=== PATIENT | male | born 1960 | race Caucasian/White ===

== ENCOUNTER 2017-06-10 05:00 | Emergency (ER) | payer OTHER ==
[2017-06-10 05:12] VITALS: BP 102/59
[2017-06-10] MEDS ORDERED: Etomidate 2 MG/ML 20 ML SDV IVPUSH ONE (05:39)
--- NOTE | 2017-06-10 05:39 | EDM.PDOC ---
ED HPI GENERAL MEDICAL PROBLEM - General Chief Complaint: Lower Extremity Injury/Pain Stated Complaint: POSS BROKEN ANKLE Time Seen by Provider: 06/10/17 05:31 Source of Information: Reports: Patient History Limitations: Reports: No Limitations - History of Present Illness INITIAL COMMENTS - FREE TEXT/NARRATIVE: His is a 56-year-old male. Early this morning he went out to walk his dog and the dog jerked him and he slipped and fell injuring his right ankle. It took him about 2 hours to get in to the ER. But he has an obviously dislocated right ankle with swelling and tenting of the skin on the medial side. On initial examination he's got decreased pedal pulse but he's got a normal posterior tibial pulse. The foot is cold though it does have some capillary refill that is greater than 2 seconds. The patient states that he figured this was going to happen since his dog is very strong and tends to jerk on the leash a lot. He denies any recent illnesses no colds no cough no fever no chills. Right Ankle Pain Score (Numeric/FACES): 9 - Related Data Allergies Allergy/AdvReac Type Severity Reaction Status Date / Time ibuprofen [From Motrin] Allergy Rash Verified 10/06/16 08:51 Home Meds: Home Meds Hydrocodone/Acetaminophen [Hydrocodon-Acetaminophen 5-325] 1 each PO Q6H PRN # 15 tablet 06/10/17 [Rx] Past Medical History Cardiovascular History: Reports: Hypertension Psychiatric History: Reports: Addiction, Anxiety, Depression Social & Family History - Tobacco Use Smoking Status *Q: Never Smoker Years of Tobacco use: 30 Second Hand Smoke Exposure: No - Caffeine Use Caffeine Use: Reports: Coffee - Alcohol Use Days Per Week of Alcohol Use: 7 Number of Drinks Per Day: 8 Total Drinks Per Week: 56 - Recreational Drug Use Recreational Drug Use: No - Living Situation & Occupation Living situation: Reports: Single Occupation: Employed Review of Systems - Review of Systems Review Of Systems: See Below Constitutional: Denies: Chills, Fever Eyes: Reports: No Symptoms Ears: Reports: No Symptoms Nose: Reports: No Symptoms Mouth/Throat: Reports: No Symptoms Respiratory: Denies: Shortness of Breath Cardiovascular: Denies: Chest Pain GI/Abdominal: Reports: No Symptoms Musculoskeletal: Reports: Other (As per history of present illness) Skin: Reports: No Symptoms Neurological: Reports: No Symptoms Psychiatric: Reports: No Symptoms ED EXAM, GENERAL - Physical Exam Exam: See Below Exam Limited By: No Limitations General Appearance: Alert, WD/WN, Mild Distress Eye Exam: Bilateral Eye: Normal Inspection Ears: Normal External Exam Nose: Normal Inspection Throat/Mouth: Normal Lips, Normal Voice, No Airway Compromise Head: Normocephalic Neck: Supple Respiratory/Chest: No Respiratory Distress, Lungs Clear, Normal Breath Sounds Cardiovascular: Regular Rate, Rhythm, No Murmur GI/Abdominal: Soft Back Exam: Full Range of Motion Extremities: Other (Right ankle appears to be dislocated posteriorly, there is much swelling on the medial side with mild tenting of the skin, he has a thready pedal pulse but a good posterior tibial pulse by Doppler, sensation does appear to be intact in all 5 digits though he says it tingles, he is also noted to have some abrasions to his right knee and a contusion to his left knee , there is no other joint injuries noted) Neurological: Alert, Oriented Psychiatric: Normal Affect, Normal Mood Skin Exam: Warm, Dry ED TRAUMA EXTREMITY PROCEDURES - Joint Reduction Site: Other (Right ankle) Sedation: Conscious Cedation Local Anesthetic Volume: Other (I pushed 20 mg of etomidate IV for the conscious sedation, no other medications) Technique: Other (Physical traction to the right heel pulling the posterior dislocation into position) Number of Attempts: 1 Post-Reduction Imaging: Completely Reduced, Fracture Seen Joint Reduction Complications: Yes Progress/Comments: I pushed 20 mg of etomidate IV and the patient went to sleep peacefully his right ankle was reduced appropriately with a splint placed. Post reduction x- rays were taken. Patient has awakened he is talking he is oriented. He indicates neurovascular appears to be intact in all 5 digits. His catheter refill now is about 3 seconds Course - Vital Signs Last Recorded V/S: Last Vital Signs Temp 98.1 F 06/10/17 05:08 Pulse 91 06/10/17 05:08 Resp 18 06/10/17 05:08 BP 102/59 L 06/10/17 05:08 Pulse Ox 97 06/10/17 05:08 - Orders/Labs/Meds Orders: Active Orders 24 hr Category Date Time Status Ankle 2V Rt [CR] Stat Exams 06/10/17 05:32 Ordered - Re-Assessments/Exams Free Text/Narrative Re-Assessment/Exam: 06/10/17 06:01 I spoke to the patient regarding the fractures and dislocation. He is going to call Dr. Kasper on Sunday for an appointment to be seen and he will have this ankle repaired this week. I did call and speak to Dr. Vail and explained to him the dislocation and reduction of the right ankle with the bimalleolar fracture. It appears to be in good position presently and he's got good pedal and posterior tibial pulses and his capillary refill now is less than 2 seconds. I did take off the original splint after the ankle was reduced and placed him in a more comfortable splint with lots of padding around the fracture ankle and placed a short leg posterior splint on the ankle. Departure - Departure Time of Disposition: 06:03 Disposition: Home, Self-Care 01 Condition: Good Clinical Impression: Bimalleolar fracture of right ankle Qualifiers: Encounter type: initial encounter Fracture type: closed Qualified Code(s): S82.841A - Displaced bimalleolar fracture of right lower leg, initial encounter for closed fracture Dislocation of right ankle joint Qualifiers: Encounter type: initial encounter Qualified Code(s): S93.04XA - Dislocation of right ankle joint, initial encounter Abrasion of right knee Qualifiers: Encounter type: initial encounter Qualified Code(s): S80.211A - Abrasion, right knee, initial encounter Contusion of left knee Qualifiers: Encounter type: initial encounter Qualified Code(s): S80.02XA - Contusion of left knee, initial encounter - Discharge Information Prescriptions: Hydrocodone/Acetaminophen [Hydrocodon-Acetaminophen 5-325] 1 each PO Q6H PRN # 15 tablet PRN Reason: Pain Referrals: Pancho Morgan Jr, MD [Primary Care Provider] - Reji Kasper MD [Physician] - Forms: ED Department Discharge, ED Return to Work/School Form Additional Instructions: Use the crutches at all times when you are up, do not place any weight on your right foot or toes because you could dislocate the right ankle again, take the pain medications as needed, elevate the right leg as much as possible for the next [address] an ice pack over the ankle 20 minutes every couple of hours, call Dr. Kasper' office on Sunday for an appointment time, return to the ER as needed ED Communication - ED Communication Date/Time Date: 06/10/17 Time Called: 05:50 - Discussed Case With (1) Discussed Case With (1): Outpatient Provider Person/s Notified (1): Reji Kasper (He will see the patient in his office) - My Orders Last 24 Hours: My Active Orders 06/10/17 05:32 Ankle 2V Rt [CR] Stat - Assessment/Plan Last 24 Hours: My Active Orders 06/10/17 05:32 Ankle 2V Rt [CR] Stat
--- NOTE | 2017-06-10 20:01 | CR ---
Right ankle: Two views of the right ankle were obtained. Comparison: No previous study. Fracture identified within the lateral malleolus and medial malleolus. Small fracture is seen within the posterior malleolus. Fiberglass splint or cast is present. Soft tissue swelling is noted. Impression: 1. Tri-malleolar fracture. Soft tissue swelling. 2. Fiberglass cast or splint is in place. Diagnostic code #3
== END 2017-06-10 06:35 | disposition home or self-care (01) ==
LOC: JD.ED 05:00
DX: S82.841A Displaced bimalleolar fracture of right lower leg, initial encounter for closed fracture (principal); S93.04XA Dislocation of right ankle joint, initial encounter; S80.02XA Contusion of left knee, initial encounter; S80.211A Abrasion, right knee, initial encounter; W01.198A Fall on same level from slipping, tripping and stumbling with subsequent striking against other object, initial encounter
CPT/HCPCS: 27840; 29515; 73600-26-RT; 73600-RT; 96374; 99283-25; 99284-25

== ENCOUNTER 2017-06-16 09:53 | Emergency (ER) | payer OTHER ==
--- NOTE | 2017-06-16 10:04 | EDM.PDOC ---
ED HPI GENERAL MEDICAL PROBLEM - General Chief Complaint: Lower Extremity Injury/Pain Stated Complaint: THINKS HE REFRACTURED RT ANKLE Time Seen by Provider: 06/16/17 10:03 - History of Present Illness INITIAL COMMENTS - FREE TEXT/NARRATIVE: 56-year-old male returns to the emergency room with right ankle pain. Patient was seen here on the diagnosed with a trimalleolar fracture. He is scheduled for outpatient surgery this next week. The patient has a posterior splint on it is to be nonweightbearing. However this morning the patient was tried to pick stuff up while using his crutches and he stumbled forward landing on his foot he has developed increased pain with this. The patient was evaluated in Dr. Kasper's office this last week. Patient states that it is not as bad as when he first injured it that his pain is disturbing right ankle Pain Score (Numeric/FACES): 7 - Related Data Allergies Allergy/AdvReac Type Severity Reaction Status Date / Time ibuprofen [From Motrin] Allergy Rash Verified 06/16/17 10:04 Home Meds: Home Meds Hydrocodone/Acetaminophen [Hydrocodon-Acetaminophen 5-325] 1 each PO Q6H PRN # 15 tablet 06/10/17 [Rx] Bp Pills 1 tab PO DAILY 06/16/17 [History] Hydrochlorothiazide 12.5 mg PO DAILY 06/16/17 [History] Losartan [Cozaar] 25 mg PO DAILY 06/16/17 [History] Past Medical History Cardiovascular History: Reports: Hypertension Psychiatric History: Reports: Addiction, Anxiety, Depression Social & Family History - Tobacco Use Smoking Status *Q: Never Smoker Years of Tobacco use: 30 Second Hand Smoke Exposure: No - Caffeine Use Caffeine Use: Reports: Coffee - Alcohol Use Days Per Week of Alcohol Use: 7 Number of Drinks Per Day: 8 Total Drinks Per Week: 56 - Recreational Drug Use Recreational Drug Use: No Drug Use in Last 12 Months: Yes Recreational Drug Type: Reports: Marijuana/Hashish Recreational Drug Use Frequency: Rarely - Living Situation & Occupation Living situation: Reports: Single Occupation: Employed Review of Systems - Review of Systems Review Of Systems: See Below Constitutional: Reports: No Symptoms Respiratory: Reports: No Symptoms Cardiovascular: Reports: No Symptoms GI/Abdominal: Reports: No Symptoms ED EXAM, GENERAL - Physical Exam Exam: See Below Exam Limited By: No Limitations General Appearance: Alert, No Apparent Distress Respiratory/Chest: No Respiratory Distress, Lungs Clear, Normal Breath Sounds Cardiovascular: Regular Rate, Rhythm, No Edema, No Murmur Neurological: Other (Examination of his right ankle shows posterior splint in place neurovascular status of his digits appears normal patient received x-rays which show a 1 cm lateral slightly inferior dislocation compared to his x-rays on the . ) Skin Exam: Other (Some tenting over the medial malleolus.) Course - Vital Signs Last Recorded V/S: Last Vital Signs Temp 36.6 C 06/16/17 12:35 Pulse 79 06/16/17 12:35 Resp 18 06/16/17 12:35 BP 153/90 H 06/16/17 12:35 Pulse Ox 98 06/16/17 12:35 - Orders/Labs/Meds Orders: Active Orders 24 hr Category Date Time Status Peripheral IV Care [RC] . DIRECTED Care 06/16/17 11:34 Active Ankle Min 3V Rt [CR] Stat Exams 06/16/17 10:10 Taken Ankle Min 3V Rt [CR] Stat Exams 06/16/17 12:51 Taken Ankle Min 3V Rt [CR] Stat Exams 06/16/17 13:25 Taken Ankle Min 3V Rt [CR] Stat Exams 06/16/17 13:25 Taken Peripheral IV Insertion Adult [OM.PC] Routine Oth 06/16/17 11:34 Ordered Meds: Medications Discontinued Medications Generic Name Dose Route Start Last Admin Trade Name Otisq PRN Reason Stop Dose Admin Hydrocodone Bitart/Acetaminophen 1 tab 06/16/17 10:16 06/16/17 10:22 [place] 325-5 Mg PO 06/16/17 10:17 1 tab ONETIME ONE Administration Fentanyl 50 mcg 06/16/17 11:34 06/16/17 11:38 Sublimaze IVPUSH 06/16/17 11:35 50 mcg ONETIME ONE Administration Fentanyl Confirm 06/16/17 11:40 06/16/17 11:38 Sublimaze Administered 06/16/17 11:41 Not Given Dose 100 mcg .ROUTE .STK-MED ONE Fentanyl 50 mcg 06/16/17 14:03 06/16/17 14:08 Sublimaze IVPUSH 06/16/17 14:04 50 mcg ONETIME ONE Administration Fentanyl 50 mcg 06/16/17 14:07 Sublimaze IVPUSH 06/16/17 14:08 ONETIME ONE Lidocaine HCl Confirm 06/16/17 12:42 Xylocaine-Mpf 1% Administered 06/16/17 12:43 Dose 4 mls @ as directed .ROUTE .STK-MED ONE Lactated Ringer's Confirm 06/16/17 12:42 Ringers, Lactated Administered 06/16/17 12:43 Dose 1,000 mls @ as directed .ROUTE .STK-MED ONE Propofol Confirm 06/16/17 12:42 Diprivan 20 Ml Administered 06/16/17 12:43 Dose 200 mg .ROUTE .STK-MED ONE Propofol Confirm 06/16/17 13:11 Diprivan 20 Ml Administered 06/16/17 13:12 Dose 200 mg .ROUTE .STK-MED ONE - Re-Assessments/Exams Free Text/Narrative Re-Assessment/Exam: 06/16/17 12:37 X-ray examination of the foot was not obtained because of discomfort positioning with the splint in place ankle was obtained he has dislocated this 1 cm to the lateral slightly inferior compared to his x-rays on the . Case discussed with Dr. Mora on-call orthopedic surgeon in [place] with bone and joint who agrees on trying to get this reduced for comfort. If this can be reduced proceed with surgery as scheduled if it cannot be reduced will send to [place]. The patient did allow me to try and reduce this however he could not relax enough anesthesia was called. 06/16/17 14:03 Multiple attempts were made to reduce this and better alignment was obtained however keeping the alignment was somewhat difficult at this point after several attempts the patient still have discomfort and is having tenting of the skin over the medial malleolus. At this point we have an incomplete reduction. This is threatening to the skin over the medial malleolus vascular status of the foot is otherwise normal neurologic status intact. 06/16/17 14:[address] Mora in [place] patient will be transferred to the emergency room at [facility] and will be evaluated by Dr. Mora at that point. Departure - Departure Time of Disposition: 14:00 Disposition: [facility] Clinical Impression: Trimalleolar fracture of ankle, closed, Dislocation, ankle - Discharge Information Referrals: Pancho Morgan Jr, MD [Primary Care Provider] - Forms: ED Department Discharge - My Orders Last 24 Hours: My Active Orders 06/16/17 10:10 Ankle Min 3V Rt [CR] Stat 06/16/17 11:34 Peripheral IV Care [RC] . DIRECTED Peripheral IV Insertion Adult [OM.PC] Routine 06/16/17 12:51 Ankle Min 3V Rt [CR] Stat 06/16/17 13:25 Ankle Min 3V Rt [CR] Stat Ankle Min 3V Rt [CR] Stat - Assessment/Plan Last 24 Hours: My Active Orders 06/16/17 10:10 Ankle Min 3V Rt [CR] Stat 06/16/17 11:34 Peripheral IV Care [RC] . DIRECTED Peripheral IV Insertion Adult [OM.PC] Routine 06/16/17 12:51 Ankle Min 3V Rt [CR] Stat 06/16/17 13:25 Ankle Min 3V Rt [CR] Stat Ankle Min 3V Rt [CR] Stat
[2017-06-16] MEDS ORDERED: Acetaminophen/HYDROcodone 325-5 MG Tab PO ONE (10:16)
[2017-06-16] MEDS ORDERED: fentaNYL 100 MCG/2 ML SDV IVPUSH ONE ×3 (11:34→14:07)
[2017-06-16] MEDS ORDERED: fentaNYL 100 MCG/2 ML SDV ONE (11:40)
[2017-06-16 12:10] VITALS: BP 153/90
--- NOTE | 2017-06-16 12:17 | PCM.PREANE ---
Preanesthetic Assessment - Anesthesia/Transfusion/Family Hx Anesthesia History: Prior Anesthesia Without Reaction Family History of Anesthesia Reaction: No Transfusion History: Prior Transfusion Without Reaction Intubation History: Unknown - Review of Systems General: No Symptoms Pulmonary: No Symptoms (Chewing tobacco utilized.) Cardiovascular: No Symptoms (History of HTN), Palpitations (on occasional) Gastrointestinal: No Symptoms Neurological: No Symptoms (Vertigo) Other: Reports: Easy Bruising, Sinus Problem (Sinus surgery noted in .) - Physical Assessment NPO Status Date: 06/16/17 NPO Status Time: 08:00 Pulse: 79 O2 Sat by Pulse Oximetry: 98 Respiratory Rate: 18 Blood Pressure: 153/90 Temperature: 36.6 C Vital Signs: Last Vital Signs Temp 36.6 C 06/16/17 09:59 Pulse 79 06/16/17 12:08 Resp 18 06/16/17 12:08 BP 153/90 H 06/16/17 12:08 Pulse Ox 98 06/16/17 12:08 Height: 1.75 m Weight: 83.915 kg ASA Class: 2E Mental Status: Alert & Oriented x3 Airway Class: Mallampati = 2 Dentition: Reports: Normal Dentition, Bridge (top left), Caries Thyro-Mental Finger Breadths: 3 Mouth Opening Finger Breadths: 3 ROM/Head Extension: Full Lungs: Clear to Auscultation, Normal Respiratory Effort Cardiovascular: Regular Rate, Regular Rhythm, No Murmurs - Allergies Allergies/Adverse Reactions: Allergies Allergy/AdvReac Type Severity Reaction Status Date / Time ibuprofen [From Motrin] Allergy Rash Verified 06/16/17 10:04 - Anesthesia Plan Pre-Op Medication Ordered: None - Acknowledgements Anesthesia Type Planned: MAC Pt an Appropriate Candidate for the Planned Anesthesia: Yes Alternatives and Risks of Anesthesia Discussed w Pt/Guardian: Yes Pt/Guardian Understands and Agrees with Anesthesia Plan: Yes PreAnesthesia Questionnaire Cardiovascular History: Reports: Hypertension Musculoskeletal History: Reports: Other (See Below) Other Musculoskeletal History: currently has fracture x 3 to right ankle, awaiting surgery Psychiatric History: Reports: Addiction, Anxiety, Depression - SUBSTANCE USE Smoking Status *Q: Never Smoker Tobacco Use Within Last Twelve Months: Snuff/Dip Second Hand Smoke Exposure: No Days Per Week of Alcohol Use: 7 Number of Drinks Per Day: 8 Total Drinks Per Week: 56 Recreational Drug Use History: No Recreational Drug Type: Reports: Marijuana/Hashish - HOME MEDS Home Medications: Home Meds Hydrocodone/Acetaminophen [Hydrocodon-Acetaminophen 5-325] 1 each PO Q6H PRN # 15 tablet 06/10/17 [Rx] Bp Pills 1 tab PO DAILY 06/16/17 [History] Hydrochlorothiazide 12.5 mg PO DAILY 06/16/17 [History] Losartan [Cozaar] 25 mg PO DAILY 06/16/17 [History] - CURRENT (IN HOUSE) MEDS Current Meds: Current Medications Discontinued Medications Hydrocodone Bitart/Acetaminophen ([place] 325-5 Mg) 1 tab PO ONETIME ONE Stop: 06/16/17 10:17 Last Admin: 06/16/17 10:22 Dose: 1 tab Fentanyl (Sublimaze) 50 mcg IVPUSH ONETIME ONE Stop: 06/16/17 11:35 Last Admin: 06/16/17 11:38 Dose: 50 mcg Fentanyl (Sublimaze) Confirm Administered Dose 100 mcg .ROUTE .STK-MED ONE Stop: 06/16/17 11:41 Last Admin: 06/16/17 11:38 Dose: Not Given
[2017-06-16] MEDS ORDERED: Lidocaine 1% 4 ML ONE (12:42)
[2017-06-16] MEDS ORDERED: Propofol 200 MG/20 ML SDV ONE ×2 (12:42→13:11)
[2017-06-16] MEDS ORDERED: Lactated Ringers 1,000 ML ONE (12:42)
--- NOTE | 2017-06-16 12:52 | PCM48HPAN ---
Post Anesthesia Note - EVALUATION WITHIN 48HRS OF ANESTHETIC Vital Signs in Normal Range: Yes Patient Participated in Evaluation: Yes Respiratory Function Stable: Yes Airway Patent: Yes Cardiovascular Function Stable: Yes Hydration Status Stable: Yes Pain Control Satisfactory: Yes Nausea and Vomiting Control Satisfactory: Yes Mental Status Recovered: Yes
--- NOTE | 2017-06-16 13:17 | PCM48HPAN ---
Post Anesthesia Note - EVALUATION WITHIN 48HRS OF ANESTHETIC Vital Signs in Normal Range: Yes Patient Participated in Evaluation: Yes Respiratory Function Stable: Yes Airway Patent: Yes Cardiovascular Function Stable: Yes Hydration Status Stable: Yes Pain Control Satisfactory: Yes Nausea and Vomiting Control Satisfactory: Yes Mental Status Recovered: Yes - COMMENTS/OBSERVATIONS Free Text/Narrative:: Patient stable after Dr. Gunn attempted to reduce a second time.
--- NOTE | 2017-06-17 17:11 | CR ---
Right ankle: Two views of the right ankle were obtained. Comparison: Previous study performed of the same day (10:13 AM). Improved alignment of previous fractures is seen with less shifting at the ankle mortise. Fiberglass splint remains in place. Impression: 1. Improved alignment. Diagnostic code #2
--- NOTE | 2017-06-17 17:11 | CR ---
Right ankle: Four views of the right ankle were obtained. Comparison: Previous study performed earlier on the same day (12:47 PM). Lateral and medial malleolar fractures are seen with posterior malleolar fracture. Additional fracture noted off the anterior talus. Mild displacement remains. Small bony density off the lateral talus remains stable and felt to be old. Soft tissue swelling is noted. Impression: 1. Mild displacement is seen but alignment is improved from previous exam. Fractures as described above. Diagnostic code #3
--- NOTE | 2017-06-17 17:11 | CR ---
Right ankle: Two views of the right ankle were obtained. Comparison: Previous study of 06/10/17. Fractures are identified within the medial and lateral malleolus and within the posterior malleolus. Small bony density off the lateral talus is seen most likely due to old avulsion injury. Displacement of the lateral and medial malleolar fractures are seen with unstable ankle mortise. Fracture is seen off the anterior distal tibia. Fiberglass splint is in place. Impression: 1. Displaced medial and lateral malleolar fractures with posterior malleolar fracture being seen. This displacement has increased from previous study. Unstable ankle mortise is seen with increased shifting at the tibiotalar joint from prior exam. Diagnostic code #3
--- NOTE | 2017-06-17 17:11 | CR ---
Right ankle: 2 views of the right ankle were obtained. Comparison: Previous studies performed on the same day, most recent (12:54 PM). Medial and lateral malleolar fractures are seen. Posterior malleolar fracture is noted. Lateral view also shows an anterior fracture off the distal tibia. Small bony density felt to be old again noted off the lateral talus Mild displacement is seen. Fiberglass splint is present. Impression: 1. Tri-malleolar fracture. Additional fracture is seen within the anterior talus. 2. Mild displacement is seen. Diagnostic code #3
== END 2017-06-16 15:15 ==
LOC: JD.ED 09:53
DX: S82.851A Displaced trimalleolar fracture of right lower leg, initial encounter for closed fracture (principal); I10 Essential (primary) hypertension; Z88.5 Allergy status to narcotic agent; Z79.899 Other long term (current) drug therapy; X50.9XXA Other and unspecified overexertion or strenuous movements or postures, initial encounter; Y92.009 Unspecified place in unspecified non-institutional (private) residence as the place of occurrence of the external cause; Y93.E9 Activity, other interior property and clothing maintenance
CPT/HCPCS: 27840; 73610; 96374; 96376; 99151; 99152; 99285; A9270; J3010; J7120; 01462; 29515; 99284-25; J2704

== ENCOUNTER 2021-05-20 08:11 | Inpatient (IN) | payer OTHER ==
[2021-05-20] MEDS ORDERED: HYDROmorphone 1 MG/ML Syringe IVPUSH ONE (08:45)
[2021-05-20] MEDS ORDERED: Ondansetron 4 MG/2 ML SDV IVPUSH ONE (08:45)
[2021-05-20] MEDS ORDERED: Sodium Chloride 0.9% 1,000 ML IV SCH (08:45)
--- NOTE | 2021-05-20 08:51 | EDM.PDOC ---
ED HPI GENERAL MEDICAL PROBLEM - General Chief Complaint: Abdominal Pain Stated Complaint: ABDOMINAL PAIN Time Seen by Provider: 05/20/21 08:24 Source of Information: Reports: Patient History Limitations: Reports: No Limitations - History of Present Illness INITIAL COMMENTS - FREE TEXT/NARRATIVE: Mr. Oneil is a very pleasant 60-year-old gentleman who now presents the ED stating that he developed bilateral mid-back pain this past 05/15/2021, that then wrapped around to both sides of his upper abdomen, in a belt-like distribution, on Sunday or Sunday. He describes the pain as sharp in character. He states that it is constant. He states that he feels somewhat better if he lies supine on a heating pad or if he takes Tylenol. His pain is made worse if he bends over or takes a deep breath. He denies associated nausea, vomiting, diarrhea, or urinary symptoms. No recent fever. He states that he has had constipation for the past 4 days, but states that he has also had a decreased oral intake. No prior similar symptoms. The patient states that he went to the walk-in clinic yesterday, , 05/19/2021. A urinalysis was reportedly normal. He states that no other tests were performed. He states that he was given a prescription for cyclobenzaprine (Flexeril), only. The patient states that he last ate around midnight. Here in the ED, the patient's initial BP is found to be mildly elevated at 145/92, otherwise, he is hemodynamically stable, afebrile, saturating 100% on room air. He appears to be comfortable, in no acute distress. Prior to Sunday, the patient denies having a recent fever, chills, sore throat, ear pain, nasal or sinus congestion, cough, dyspnea, chest pain, palpitations, nausea, vomiting, constipation, diarrhea, abdominal pain, urinary symptoms, recent weight gain or weight loss, recent bloody bowel movements or black bowel movements, recent joint aches, headaches, or rashes. The patient's PCP is Dr. Min Rutledge. His Orthopedic Surgeon is Dr. Reji Kasper. He has received a single J&J COVID vaccination. Back Pain Score (Numeric/FACES): 8 - Related Data Allergies Allergy/AdvReac Type Severity Reaction Status Date / Time ibuprofen [From Motrin] Allergy Rash Verified 05/20/21 08:29 Home Meds: Home Meds Losartan [Cozaar] 25 mg PO DAILY 06/16/17 [History] hydroCHLOROthiazide [Hydrochlorothiazide] 12.5 mg PO DAILY 06/16/17 [History] Cyclobenzaprine [Flexeril] 10 mg PO BID 05/20/21 [History] LORazepam [Ativan] 1 mg PO DAILY 05/20/21 [History] Past Medical History Cardiovascular History: Reports: Hypertension Musculoskeletal History: Reports: Fracture (right ankle) Psychiatric History: Reports: Addiction (alcohol), Anxiety, Depression (untreated) - Past Surgical History Male Surgical History: Reports: Vasectomy Musculoskeletal Surgical History: Reports: ORIF (right ankle) Social & Family History - Tobacco Use Tobacco Use Within Last Twelve Months: Smokeless Tobacco (Chews 1 can/day) - Caffeine Use Caffeine Use: Reports: Coffee - Alcohol Use Alcohol Use History: Yes Alcohol Use Frequency: Daily - Recreational Drug Use Recreational Drug Use: Yes Drug Use in Last 12 Months: Yes Recreational Drug Type: Reports: Marijuana/Hashish (last smoked February 2021) - Living Situation & Occupation Living situation: Reports: , Alone Occupation: Retired ED ROS GENERAL - Review of Systems Review Of Systems: Comprehensive ROS is negative, except as noted in HPI. ED EXAM, GI/ABD - Physical Exam Exam: See Below Exam Limited By: No Limitations General Appearance: Alert, WD/WN, No Apparent Distress Eyes: Bilateral: Normal Appearance, EOMI Ears: Normal External Exam, Hearing Grossly Normal Nose: Normal Inspection Throat/Mouth: Normal Inspection, Normal Lips, Normal Voice, No Airway Compromise Head: Atraumatic, Normocephalic Neck: Normal Inspection, Full Range of Motion Respiratory/Chest: No Respiratory Distress, Lungs Clear, Normal Breath Sounds, No Accessory Muscle Use Cardiovascular: Normal Peripheral Pulses, Regular Rate, Rhythm, No Edema, No Gallop, No JVD, No Murmur, No Rub GI/Abdominal Exam: Normal Bowel Sounds, Soft, No Organomegaly, No Distention, No Abnormal Bruit, No Mass, Tender (Right upper quadrant only, with true Espinoza sign. Nontender elsewhere, although palpation of the left lower quadrant induces pain on the right side.) Back Exam: Normal Inspection, Full Range of Motion. No: CVA Tenderness (L), CVA Tenderness (R) Extremities: Normal Inspection, Normal Range of Motion, No Pedal Edema, Normal Capillary Refill Neurological: Alert, Oriented, Normal Cognition, No Motor/Sensory Deficits Psychiatric: Normal Affect Skin Exam: Warm, Dry, Intact, Normal Color, No Rash Course - Vital Signs Last Recorded V/S: Last Vital Signs Temp 36.7 C 05/20/21 08:29 Pulse 94 05/20/21 08:29 Resp 18 05/20/21 08:29 BP 145/92 H 05/20/21 08:29 Pulse Ox 100 05/20/21 08:29 - Orders/Labs/Meds Orders: Active Orders 24 hr Category Date Time Status BASIC METABOLIC PANEL,BMP [CHEM] Timed Lab 05/20/21 11:30 Stop Req BASIC METABOLIC PANEL,BMP [CHEM] Timed Lab 05/20/21 12:15 Ordered Potassium Chloride [KCl in Water 10 MEQ/100 ML] 10 meq Med 05/20/21 10:00 Active Premix Bag 1 bag IV Q1H Sodium Chloride 0.9% [Saline Flush] Med 05/20/21 10:12 Active 10 ml FLUSH ONETIME PRN Sodium Chloride 3% 500 ml Med 05/20/21 10:00 Active IV ASDIRECTED Medication Orders Sodium Chloride (Sodium Chloride 3%) 500 mls @ 20 mls/hr IV ASDIRECTED NAHEED Last Admin: 05/20/21 11:10 Dose: 20 mls/hr Documented by: [email or web address] Potassium Chloride 10 meq/ (Premix) 100 mls @ 100 mls/hr IV Q1H NAHEED Stop: 05/20/21 13:59 Last Admin: 05/20/21 10:36 Dose: 100 mls/hr Documented by: [id number] Sodium Chloride (Sodium Chloride 0.9% 10 Ml Syringe) 10 ml FLUSH ONETIME PRN PRN Reason: IV FLUSH Last Admin: 05/20/21 10:15 Dose: 10 ml Documented by: VERONICA Labs: Laboratory Tests 05/20/21 05/20/21 05/20/21 Range/Units 08:56 08:56 09:45 WBC 7.23 (4.23-9.07) K/mm3 RBC 3.83 L (4.63-6.08) M/mm3 Hgb 12.9 L D (13.7-17.5) gm/dl Hct 35.6 L (40.1-51.0) % MCV 93.0 H (79.0-92.2) fl MCH 33.7 H (25.7-32.2) pg MCHC 36.2 H (32.2-35.5) g/dl RDW Std Deviation 38.2 (35.1-43.9) fL Plt Count 230 D (163-337) K/mm3 MPV 7.8 L (9.4-12.3) fl Neutrophils % (Manual) 64 H (40-60) % Band Neutrophils % 0 (0-10) % Lymphocytes % (Manual) 17 L (20-40) % Atypical Lymphs % 0 % Monocytes % (Manual) 18 H (2-10) % Eosinophils % (Manual) 1 (0.8-7.0) % Basophils % (Manual) 0 L (0.2-1.2) Platelet Estimate Adequate RBC Morph Comment Normal Sodium 116 L* D (136-145) mEq/L Potassium 2.6 L (3.5-5.1) mEq/L Chloride 78 L (98-107) mEq/L Carbon Dioxide 27 (21-32) mEq/L Anion Gap 13.6 (5-15) BUN 19 H (7-18) mg/dL Creatinine 1.1 (0.7-1.3) mg/dL Est Cr Clr Drug Dosing 70.52 mL/min Estimated GFR (MDRD) > 60 (>60) mL/min BUN/Creatinine Ratio 17.3 (14-18) Glucose 109 H (70-99) mg/dL Calcium 9.0 (8.5-10.1) mg/dL Magnesium 2.2 (1.8-2.4) mg/dL Total Bilirubin 0.8 (0.2-1.0) mg/dL AST 71 H (15-37) U/L ALT 100 H (16-63) U/L Alkaline Phosphatase 66 (46-116) U/L Total Protein 7.8 (6.4-8.2) g/dl Albumin 3.9 (3.4-5.0) g/dl Globulin 3.9 gm/dL Albumin/Globulin Ratio 1.0 (1-2) Lipase 59 L (73-393) U/L SARS-CoV-2 RNA (MAXIMINO) Negative (NEGATIVE) Meds: Medications Generic Name Dose Route Start Last Admin Trade Name Brandon PRN Reason Stop Dose Admin Sodium Chloride 500 mls @ 20 mls/hr 05/20/21 10:00 05/20/21 11:10 Sodium Chloride 3% IV 20 mls/hr ASDIRECTED NAHEED Administration Potassium Chloride 10 meq/ 100 mls @ 100 mls/hr 05/20/21 10:00 05/20/21 10:36 Premix IV 05/20/21 13:59 100 mls/hr Q1H NAHEED Administration Sodium Chloride 10 ml 05/20/21 10:12 05/20/21 10:15 Sodium Chloride 0.9% 10 Ml Syringe FLUSH 10 ml ONETIME PRN Administration IV FLUSH Discontinued Medications Generic Name Dose Route Start Last Admin Trade Name Brandon PRN Reason Stop Dose Admin Diatrizoate Meglum/Diatrizoate Sod 120 ml 05/20/21 10:12 05/20/21 10:14 Diatrizoate Meglumine/Diatrizoate Sodium 37% 120 Ml Bottle PO 05/20/21 10:13 30 ml ONETIME ONE Administration Hydromorphone HCl 1 mg 05/20/21 08:45 05/20/21 08:54 Hydromorphone 1 Mg/Ml Syringe IVPUSH 05/20/21 08:46 1 mg ONETIME ONE Administration Sodium Chloride 1,000 mls @ 150 mls/hr 05/20/21 08:45 05/20/21 08:54 Normal Saline IV 150 mls/hr ASDIRECTED NAHEED Administration Iopamidol 100 ml 05/20/21 10:12 05/20/21 10:14 Iopamidol 612 Mg/Ml 100 Ml Bottle IVPUSH 05/20/21 10:13 100 ml ONETIME ONE Administration Ondansetron HCl 4 mg 05/20/21 08:45 05/20/21 08:54 Ondansetron 4 Mg/2 Ml Sdv IVPUSH 05/20/21 08:46 4 mg ONETIME ONE Administration - Re-Assessments/Exams Free Text/Narrative Re-Assessment/Exam: 05/20/21 08:46 The patient's history and physical examination are most concerning for acute cholecystitis. Since he last ate at midnight, we can perform an ultrasound of his right upper quadrant now. I have also ordered some blood work and a CT of his abdomen and pelvis with oral and IV contrast to rule out other etiologies. I have also ordered a swab for the SARS-CoV-2 virus in the event that the patient needs to go to the OR or get transferred. In the meantime, the patient will be given some IV Dilaudid, IV Zofran, and IV fluid. Other than oral contrast for the CT scan, he will be kept n.p.o. 05/20/21 10:01 The patient's CBC is remarkable for an H/H slightly depressed at 12.9/35.6, with the remainder of his CBC being unremarkable. His CMP is remarkable for severe hyponatremia of 116 and significant hypokalemia of 2.6. He has slight hyperglycemia of 109, with remainder of his CMP being unremarkable. His magnesium level is within normal limits at 2.2. His lipase level is within normal limits at 59. I have ordered discontinuation of the patient's NS, and have ordered initiation of 3% NaCl at 20 mL/h, along with IV KCl, 40 mEq over 4 hours. I have also ordered a BMP to be drawn at 11:30 (about an hour after initiation of the 3% NaCl). 05/20/21 10:44 Ultrasound of the right upper quadrant is read by Dr. Lazo as: 1. Echogenic liver compatible with fatty infiltration. 2. Poorly seen proximal aorta, pancreas and inferior vena cava due to bowel gas. 3. No additional abnormality is appreciated. 05/20/21 10:55 CT of the abdomen and pelvis with oral and IV contrast is read by Dr. Lazo as: 1. Fatty infiltration within the liver. 2. Degenerative change within the spine with compression fracture at T10 which is most likely old. 3. Possible bladder mass measuring 2.5 cm x 1.0 cm. Cystoscopy is suggested. 4. Other findings believed to be chronic as described above. The patient's swab for the SARS-CoV-2 virus is negative. 05/20/21 11:12 Notified that the 3% NaCl is being started at this time. I have therefore changed the BMP to be drawn at 12:15. Test results discussed with the patient. As above, today's work-up does not explain the cause of his pain, however, did reveal severe hyponatremia, along with hypokalemia. I explained that if we knew that his hyponatremia was acute in onset, we could correct it quickly, but that for chronic or slow-onset hyponatremia, the correction needs to be slow, and for that reason, the patient will need to be admitted to the hospital. The patient is agreeable. 05/20/21 11:[address] Smith here in the ED. He accepted the patient for admission to the medical floor. Departure - Departure Time of Disposition: 11:19 Disposition: Admitted As Inpatient 65 Condition: Good Clinical Impression: Hyponatremia, Hypokalemia - Discharge Information Referrals: Min Rutledge MD [Primary Care Provider] - Forms: ED Department Discharge Sepsis Event Note (ED) - Focused Exam Vital Signs: Vital Signs Temp Pulse Resp BP Pulse Ox 05/20/21 08:29 36.7 C 94 18 145/92 H 100 - My Orders Last 24 Hours: My Active Orders 05/20/21 10:00 Potassium Chloride [KCl in Water 10 MEQ/100 ML] 10 meq Premix Bag 1 bag IV Q1H Sodium Chloride 3% 500 ml IV ASDIRECTED 05/20/21 10:12 Sodium Chloride 0.9% [Saline Flush] 10 ml FLUSH ONETIME PRN 05/20/21 11:30 BASIC METABOLIC PANEL,BMP [CHEM] Timed 05/20/21 12:15 BASIC METABOLIC PANEL,BMP [CHEM] Timed - Assessment/Plan Last 24 Hours: My Active Orders 05/20/21 10:00 Potassium Chloride [KCl in Water 10 MEQ/100 ML] 10 meq Premix Bag 1 bag IV Q1H Sodium Chloride 3% 500 ml IV ASDIRECTED 05/20/21 10:12 Sodium Chloride 0.9% [Saline Flush] 10 ml FLUSH ONETIME PRN 05/20/21 11:30 BASIC METABOLIC PANEL,BMP [CHEM] Timed 05/20/21 12:15 BASIC METABOLIC PANEL,BMP [CHEM] Timed
[2021-05-20] MEDS ORDERED: Sodium Chloride 3% 500 ML IV SCH (10:00)
--- NOTE | 2021-05-20 10:10 | US ---
Limited abdominal ultrasound: Multiple real-time images were obtained of the upper right abdomen. Comparison: No prior abdominal imaging is available. Liver is echogenic which is most likely due to diffuse fatty infiltration which makes evaluation of the liver difficult. Gallbladder shows no shadowing gallstones. No gallbladder wall thickening is appreciated. No biliary duct dilatation is seen. Right kidney shows no hydronephrosis or mass. Right kidney length is 12.2 cm. Pancreas is obscured by bowel gas. Main portal vein shows normal hepatopedal flow. Inferior vena cava and proximal aorta are obscured. Impression: 1. Echogenic liver compatible with fatty infiltration. 2. Poorly seen proximal aorta, pancreas and inferior vena cava due to bowel gas. 3. No additional abnormality is appreciated. Diagnostic code #2
[2021-05-20] MEDS ORDERED: Diatrizoate Meglumine/Diatrizoate Sodium 37% 120 ML Bottle PO ONE (10:12)
[2021-05-20] MEDS ORDERED: Iopamidol 612 MG/ML 100 ML Bottle IVPUSH ONE (10:12)
[2021-05-20] MEDS ORDERED: Sodium Chloride 0.9% 10 ML Syringe FLUSH PRN (10:12)
[2021-05-20] MEDS: Potassium Chloride 10 MEQ in Premix Bag 1 BAG IV SCH ×4 (10:36→13:33)
--- NOTE | 2021-05-20 10:41 | CT ---
CT abdomen and pelvis Technique: Multiple axial sections were obtained from above the dome of the diaphragm inferiorly through the pubic symphysis. Intravenous and oral contrast were utilized. Delayed images were also obtained through the abdomen and pelvis. Reconstructed coronal and sagittal images were obtained. Comparison: Prior abdominal ultrasound performed earlier on the same day (9:13 AM). Findings: Visualized lung bases show mild linear densities most likely representing areas of scarring. Diffuse fatty infiltration is seen throughout the liver. Spleen size is normal. Adrenal glands show no nodule. Gallbladder contains no calcified gallstones. Pancreas is within normal limits. Kidneys show symmetric contrast enhancement. Delayed images show contrast within the kidney collecting systems as well as within the ureters and bladder. Kidneys show no hydronephrosis or mass. Abdominal aorta shows no aneurysm. No retroperitoneal adenopathy or mesenteric abnormalities are seen. Appendix is seen which is normal. Contrast is noted within a slightly prominent jejunum which most likely relates to the hypertonic effect of the contrast. No other bowel dilatation is seen. No pelvic adenopathy is seen. Possible filling defect is noted within the base of the bladder which measures approximately 2.5 cm x 1.0 cm which could represent blood clot or a bladder mass. Small fat-containing left inguinal hernia is noted. Bone window settings were reviewed which show diffuse degenerative change within the spine. There is a moderate to severe compression deformity within T10 which I believe is old. Impression: 1. Fatty infiltration within the liver. 2. Degenerative change within the spine with compression fracture at T10 which is most likely old. 3. Possible bladder mass measuring 2.5 cm x 1.0 cm. Cystoscopy is suggested. 4. Other findings believed to be chronic as described above. Diagnostic code #9
[2021-05-20] MEDS ORDERED: Docusate Sodium 100 MG Cap PO PRN (11:37)
[2021-05-20] MEDS ORDERED: Acetaminophen 325 MG Tab PO PRN (11:37)
[2021-05-20] MEDS ORDERED: Enoxaparin 40 MG/0.4 ML Syringe SUBCUT SCH (11:45)
--- NOTE | 2021-05-20 11:45 | PCM.HP.2 ---
H&P History of Present Illness - General Date of Service: 05/20/21 Admit Problem/Dx: Admission Diagnosis/Problem Admission Diagnosis/Problem Hyponatremia Source of Information: Patient History Limitations: Reports: No Limitations - History of Present Illness Initial Comments - Free Text/Narative: The patient is a 60-year-old gentleman who had presented to the emergency depa rtment with a complaint of abdominal pain which he says started out in his back and had radiated around to the front. The patient at this time says that his abdominal pain is almost resolved. He has been suffering from constipation. Laboratory testing in the emergency department had shown that the patient had profound hyponatremia at 116 mEq/L. The patient has a history of hyponatremia. In 2017 he had a sodium at 127 mEq/L. The patient also says that he uses smokeless tobacco. He admits to alcohol use. The patient has had recently retired and he has been feeling some stress. The patient has no other specific aggravating or relieving factors. Onset of Symptoms: Reports: Gradual Duration of Symptoms: Reports: Getting Worse Location: Reports: Abdomen Quality: Reports: Ache, Stabbing Severity: Mild Improves with: Reports: None Worsens with: Reports: None Context: Denies: Sick Contact Associated Symptoms: Reports: Weakness Back Pain Score (Numeric/FACES): 8 - Related Data Allergies/Adverse Reactions: Allergies Allergy/AdvReac Type Severity Reaction Status Date / Time ibuprofen [From Motrin] Allergy Rash Verified 05/20/21 12:54 Home Medications: Home Meds Losartan [Cozaar] 100 mg PO DAILY 06/16/17 [History] Aspirin 325 mg PO DAILY 05/20/21 [History] Chlorthalidone 12.5 mg PO DAILY 05/20/21 [History] Cyclobenzaprine [Flexeril] 10 mg PO TID PRN 05/20/21 [History] LORazepam [Ativan] 1 mg PO BID 05/20/21 [History] Multivitamin 1 tab PO DAILY 05/20/21 [History] amLODIPine [Norvasc] 10 mg PO DAILY 05/20/21 [History] Past Medical History HEENT History: Reports: None Cardiovascular History: Reports: Hypertension Respiratory History: Reports: None Gastrointestinal History: Reports: Fatty Liver Genitourinary History: Reports: None Musculoskeletal History: Reports: Fracture (right ankle) Other Musculoskeletal History: currently has fracture x 3 to right ankle, awaiting surgery Neurological History: Reports: None Psychiatric History: Reports: Addiction (alcohol), Anxiety, Depression (untreated) Endocrine/Metabolic History: Reports: None Hematologic History: Reports: None Immunologic History: Reports: None Dermatologic History: Reports: None - Past Surgical History Male Surgical History: Reports: Vasectomy Musculoskeletal Surgical History: Reports: ORIF (right ankle) Social & Family History - Family History Family Medical History: No Pertinent Family History - Tobacco Use Tobacco Use Status *Q: Current Every Day Tobacco User Tobacco Use Within Last Twelve Months: Smokeless Tobacco Years of Tobacco use: 20 Packs/Tins Daily: 0.5 - Caffeine Use Caffeine Use: Reports: Coffee - Alcohol Use Days Per Week of Alcohol Use: 7 Number of Drinks Per Day: 1 Total Drinks Per Week: 7 Alcohol Use in Last Twelve Months: Yes - Recreational Drug Use Recreational Drug Use: Yes Drug Use in Last 12 Months: Yes Recreational Drug Type: Reports: Marijuana/Hashish (last smoked February 2021) Recreational Drug Use Frequency: Monthly - Living Situation & Occupation Living situation: Reports: , Alone Occupation: Retired H&P Review of Systems - Review of Systems: Review Of Systems: See Below General: Reports: No Symptoms HEENT: Reports: No Symptoms Pulmonary: Reports: No Symptoms Cardiovascular: Reports: No Symptoms Gastrointestinal: Reports: Abdominal Pain, Constipation Genitourinary: Reports: No Symptoms Musculoskeletal: Reports: No Symptoms Skin: Reports: No Symptoms Psychiatric: Reports: No Symptoms Neurological: Reports: No Symptoms Hematologic/Lymphatic: Reports: No Symptoms Immunologic: Reports: No Symptoms Exam - Exam Exam: See Below - Vital Signs Vital Signs: Last Vital Signs Temp 36.7 C 05/20/21 08:29 Pulse 94 05/20/21 08:29 Resp 18 05/20/21 08:29 BP 145/92 H 05/20/21 08:29 Pulse Ox 100 05/20/21 08:29 Weight: 87.09 kg - Exam Quality Assessment: No: Supplemental Oxygen, DVT Prophylaxis General: Alert, Oriented, Cooperative HEENT: Conjunctiva Clear, EACs Clear, EOMI, Hearing Intact, Mucosa Moist & [place], PERRLA Neck: Supple, Trachea Midline Lungs: Clear to Auscultation, Normal Respiratory Effort Cardiovascular: Regular Rate, Regular Rhythm, Normal S1, Normal S2 GI/Abdominal Exam: Normal Bowel Sounds, Soft, Non-Tender, No Distention. No: Guarding, Rigid (Male) Exam: Deferred Rectal (Males) Exam: Deferred Back Exam: Normal Inspection, Full Range of Motion Extremities: Normal Inspection, Normal Range of Motion, No Pedal Edema Skin: Warm, Dry, Intact Neurological: Cranial Nerves Intact, Strength Equal Bilateral, Normal Gait, Nor mal Speech, Normal Tone Neuro Extensive - Mental Status: Alert, Memory Intact Psychiatric: Alert, Normal Affect, Normal Mood - Patient Data Lab Results Last 24 hrs: Laboratory Results - last 24 hr 05/20/21 05/20/21 05/20/21 Range/Units 08:56 08:56 09:45 WBC 7.23 (4.23-9.07) K/mm3 RBC 3.83 L (4.63-6.08) M/mm3 Hgb 12.9 L D (13.7-17.5) gm/dl Hct 35.6 L (40.1-51.0) % MCV 93.0 H (79.0-92.2) fl MCH 33.7 H (25.7-32.2) pg MCHC 36.2 H (32.2-35.5) g/dl RDW Std Deviation 38.2 (35.1-43.9) fL Plt Count 230 D (163-337) K/mm3 MPV 7.8 L (9.4-12.3) fl Neutrophils % (Manual) 64 H (40-60) % Band Neutrophils % 0 (0-10) % Lymphocytes % (Manual) 17 L (20-40) % Atypical Lymphs % 0 % Monocytes % (Manual) 18 H (2-10) % Eosinophils % (Manual) 1 (0.8-7.0) % Basophils % (Manual) 0 L (0.2-1.2) Platelet Estimate Adequate RBC Morph Comment Normal Sodium 116 L* D (136-145) mEq/L Potassium 2.6 L (3.5-5.1) mEq/L Chloride 78 L (98-107) mEq/L Carbon Dioxide 27 (21-32) mEq/L Anion Gap 13.6 (5-15) BUN 19 H (7-18) mg/dL Creatinine 1.1 (0.7-1.3) mg/dL Est Cr Clr Drug Dosing 70.52 mL/min Estimated GFR (MDRD) > 60 (>60) mL/min BUN/Creatinine Ratio 17.3 (14-18) Glucose 109 H (70-99) mg/dL Calcium 9.0 (8.5-10.1) mg/dL Magnesium 2.2 (1.8-2.4) mg/dL Total Bilirubin 0.8 (0.2-1.0) mg/dL AST 71 H (15-37) U/L ALT 100 H (16-63) U/L Alkaline Phosphatase 66 (46-116) U/L Total Protein 7.8 (6.4-8.2) g/dl Albumin 3.9 (3.4-5.0) g/dl Globulin 3.9 gm/dL Albumin/Globulin Ratio 1.0 (1-2) Lipase 59 L (73-393) U/L SARS-CoV-2 RNA (MAXIMINO) Negative (NEGATIVE) Result Diagrams: 05/20/21 08:56 05/20/21 12:20 Sepsis Event Note - Focused Exam Vital Signs: Vital Signs Temp Pulse Resp BP Pulse Ox 05/20/21 08:29 36.7 C 94 18 145/92 H 100 - Problem List (1) Hyponatremia SNOMED Code(s): 85795040 ICD Code: E87.1 - HYPO-OSMOLALITY AND HYPONATREMIA Status: Chronic Priority: High Current Visit: Yes (2) Hypokalemia SNOMED Code(s): 09608266 ICD Code: E87.6 - HYPOKALEMIA Status: Chronic Priority: High Current Visit: Yes (3) 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 SNOMED Code(s): 851885432 ICD Code: K76.0 - FATTY (CHANGE OF) LIVER, NOT ELSEWHERE CLASSIFIED Status: Chronic Priority: Medium Current Visit: Yes (4) Alcohol abuse SNOMED Code(s): 98588089 ICD Code: F10.10 - ALCOHOL ABUSE, UNCOMPLICATED Status: Chronic Priority: Medium Current Visit: Yes (5) Anxiety SNOMED Code(s): 50478598 ICD Code: F41.9 - ANXIETY DISORDER, UNSPECIFIED Status: Chronic Priority: Medium Current Visit: Yes Problem List Initiated/Reviewed/Updated: Yes Orders Last 24hrs: Active Orders 24 hr Category Date Time Status Patient Status [ADT] Routine ADT 05/20/21 11:37 Ordered Cardiac Monitoring [RC] CONTINUOUS Care 05/20/21 11:40 Ordered Intake and Output [RC] QSHIFT Care 05/20/21 11:40 Ordered Oxygen Therapy [RC] PRN Care 05/20/21 11:37 Ordered Up ad Shell [RC] ASDIRECTED Care 05/20/21 11:37 Ordered VTE/DVT Education [RC] PER UNIT ROUTINE Care 05/20/21 11:37 Ordered Vital Signs [RC] Q4H Care 05/20/21 11:37 Ordered Regular Diet [DIET] Diet 05/20/21 Dinner Ordered BASIC METABOLIC PANEL,BMP [CHEM] Timed Lab 05/20/21 12:15 Ordered CBC WITH AUTO DIFF [HEME] AM Lab 05/21/21 05:11 Ordered COMPREHENSIVE METABOLIC PN,CMP [CHEM] AM Lab 05/21/21 05:11 Ordered OSMOLALITY,URINE [URCHEM] Stat Lab 05/20/21 11:42 Ordered SODIUM,URINE RANDOM [URCHEM] Stat Lab 05/20/21 11:42 Ordered Acetaminophen [TylenoL] Med 05/20/21 11:37 Ordered 650 mg PO Q4H PRN Cyclobenzaprine [Flexeril] Med 05/20/21 21:00 Ordered 10 mg PO BID Docusate Sodium [Colace] Med 05/20/21 11:37 Ordered 100 mg PO BID PRN Enoxaparin [Lovenox] Med 05/20/21 11:45 Ordered 40 mg SUBCUT DAILY LORazepam [Ativan] Med 05/21/21 09:00 Ordered 1 mg PO DAILY Losartan [Cozaar] Med 05/21/21 09:00 Ordered 25 mg PO DAILY Morphine Med 05/20/21 11:37 Ordered 2 mg IVPUSH Q2H PRN Nicotine [Habitrol] Med 05/20/21 11:45 Ordered 21 mg TRDERM DAILY Potassium Chloride [KCl in Water 10 MEQ/100 ML] 10 meq Med 05/20/21 10:00 Active Premix Bag 1 bag IV Q1H Sodium Chloride 0.9% [Saline Flush] Med 05/20/21 10:12 Active 10 ml FLUSH ONETIME PRN Sodium Chloride 3% 500 ml Med 05/20/21 10:00 Active IV ASDIRECTED oxyCODONE Med 05/20/21 11:37 Ordered 5 mg PO Q4H PRN Resuscitation Status Routine Resus Stat 05/20/21 11:37 Ordered Medication Orders Acetaminophen (Acetaminophen 325 Mg Tab) 650 mg PO Q4H PRN PRN Reason: Pain (Mild 1-3)/fever Cyclobenzaprine HCl (Cyclobenzaprine 10 Mg Tab) 10 mg PO BID [facility] Docusate Sodium (Docusate Sodium 100 Mg Cap) 100 mg PO BID PRN PRN Reason: Constipation Enoxaparin Sodium (Enoxaparin 40 Mg/0.4 Ml Syringe) 40 mg SUBCUT DAILY [facility] Sodium Chloride (Sodium Chloride 3%) 500 mls @ 20 mls/hr IV ASDIRECTED NAHEED Last Admin: 05/20/21 11:10 Dose: 20 mls/hr Documented by: SUJATHA Potassium Chloride 10 meq/ (Premix) 100 mls @ 100 mls/hr IV Q1H [facility] Stop: 05/20/21 13:59 Last Admin: 05/20/21 11:13 Dose: 100 mls/hr Documented by: Infusion: 05/20/21 11:13 Dose: 100 mls/hr Documented by: Admin: 05/20/21 10:36 Dose: 100 mls/hr Documented by: YEYO Lorazepam (Lorazepam 1 Mg Tab) 1 mg PO DAILY [facility] Losartan Potassium (Losartan 25 Mg Tab) 25 mg PO DAILY [facility] Morphine Sulfate (Morphine 2 Mg/Ml Syringe) 2 mg IVPUSH Q2H PRN PRN Reason: Pain (severe 7-10) Stop: 05/21/21 11:41 Nicotine (Nicotine 21 Mg/24 Hr Patch) 21 mg TRDERM DAILY [facility] Oxycodone HCl (Oxycodone 5 Mg Tab) 5 mg PO Q4H PRN PRN Reason: Pain (moderate 4-6) Sodium Chloride (Sodium Chloride 0.9% 10 Ml Syringe) 10 ml FLUSH ONETIME PRN PRN Reason: IV FLUSH Last Admin: 05/20/21 10:15 Dose: 10 ml Documented by: VERONICA Assessment/Plan Comment:: Is a 60-year-old gentleman who has been admitted to acute hospitalization as an inpatient secondary to hyponatremia. This will require slow correction between 2 to 4 mEq/h. The patient does have a history of chronic hyponatremia and his chlorthalidone has been withheld as this can cause hyponatremia as well. The patient's potassium is also going to be replaced. The patient is also going to be placed on normal saline. The patient does have a history of alcohol abuse and this may be a contributing factor. I do not feel that the patient needs to have a CIWA evaluation at this time. I have also ordered urine osmolality and spot sodium. I have ordered the patient to have ACTH challenge to rule out SIADH. The patient does have fatty liver and this is likely secondary to alcohol usage which could also contribute to hyponatremia. The patient will be anticoagulated with the use of Lovenox 40 mg subcu daily. The patient will also be appropriate for discharge once his sodium is normalized. - Mortality Measure Prognosis:: Good
[2021-05-20] MEDS ORDERED: Nicotine 21 MG/24 Hr Patch TRDERM SCH (14:00)
[2021-05-20] MEDS: Enoxaparin 40 MG/0.4 ML Syringe SUBCUT SCH (14:37)
[2021-05-20] MEDS: Morphine 2 MG/ML SYRINGE IVPUSH PRN ×2 (15:06→18:49)
[2021-05-20] MEDS ORDERED: Cyclobenzaprine 10 MG Tab PO PRN (19:33)
[2021-05-20] MEDS ORDERED: Cyclobenzaprine 10 MG Tab PO SCH (21:00)
[2021-05-20] MEDS: LORazepam 1 MG Tab PO SCH (21:25)
[2021-05-21] MEDS: Morphine 2 MG/ML SYRINGE IVPUSH PRN (00:53)
[2021-05-21] MEDS: oxyCODONE 5 MG Tab PO PRN ×2 (02:42→07:07)
[2021-05-21] MEDS ORDERED: Losartan 100 MG Tab PO SCH (09:00)
[2021-05-21] MEDS ORDERED: amLODIPine 10 MG Tab PO SCH (09:00)
[2021-05-21] MEDS ORDERED: LORazepam 1 MG Tab PO SCH (09:00)
[2021-05-21] MEDS ORDERED: Aspirin 325 MG Tab.EC PO SCH (09:00)
[2021-05-21] MEDS ORDERED: Losartan 25 MG Tab PO SCH (09:00)
[2021-05-21] MEDS: LORazepam 1 MG Tab PO SCH (09:31)
[2021-05-21] MEDS: Enoxaparin 40 MG/0.4 ML Syringe SUBCUT SCH (09:32)
[2021-05-21 09:33] VITALS: BP 121/74
--- NOTE | 2021-05-21 10:22 | PCM.DCSUM1 ---
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 The patient was tested and found to have severe hyponatremia at 116 mEq/L. The patient was admitted to acute hospitalization for slow correction of this. The patient also had been complaining of constipation. The patient was started on normal saline to help correct his sodium. A review of the records had indicated that the patient does have a history of hyponatremia and has been asymptomatic with this. The patient also has been on antihypertensive medications including hydrochlorothiazide as well as chlorthalidone. These were discontinued. The patient's hyponatremia is likely diuretic induced. ACTH test is pending. The patient reports alcohol consumption. He was also noted on CT scan to have fatty liver as well as mild elevations of his ALT and AST. The patient further admits that he had been drinking more since he retired. By time of admission the patient says that his abdominal pain had completely resolved. He also had bowel movements and had returned to his baseline health condition. By day of discharge the patient's sodium had corrected to 128 mEq/L and this number is more in line with his chronic hyponatremia. The patient has been recommended to follow-up with his primary care physician. Patient has been having a regular diet as tolerated. The patient has been recommended to continue with this. He is also to have activity as tolerated. The patient otherwise has been hemodynamically stable and he feels like he can safely go home. - Patient Instructions Diet: Usual Diet as Tolerated Activity: As Tolerated Notify Provider of: Fever, Increased Pain - Discharge Plan *PRESCRIPTION DRUG MONITORING PROGRAM REVIEWED*: No *COPY OF PRESCRIPTION DRUG MONITORING REPORT IN PATIENT ROSAURA: No Prescriptions/Med Rec: Nicotine [Habitrol] 21 mg TRDERM Q24H #20 patch Tobacco Cessation Medication: Prescription Given Home Medications: Home Meds Losartan [Cozaar] 100 mg PO DAILY 06/16/17 [History] Aspirin 325 mg PO DAILY 05/20/21 [History] Cyclobenzaprine [Flexeril] 10 mg PO TID PRN 05/20/21 [History] LORazepam [Ativan] 1 mg PO BID 05/20/21 [History] Multivitamin 1 tab PO DAILY 05/20/21 [History] amLODIPine [Norvasc] 10 mg PO DAILY 05/20/21 [History] Nicotine [Habitrol] 21 mg TRDERM Q24H #20 patch 05/21/21 [Rx] Oxygen Therapy Mode: Room Air Referrals: Min Rutledge MD [Primary Care Provider] - (Call clinic and make an appointment to follow-up with in 7-10 days.) - Discharge Summary/Plan Comment DC Time >30 min.: Yes Total # of Minutes for Discharge Time: 45 - General Info Date of Service: 05/21/21 Admission Dx/Problem (Free Text: Admission Diagnosis/Problem Admission Diagnosis/Problem Hyponatremia Subjective Update: The patient says that he feels better. He is back at his baseline. The patient says that he feels like he can go home. Functional Status: Reports: Pain Controlled, Tolerating Diet - Review of Systems General: Reports: No Symptoms HEENT: Reports: No Symptoms Pulmonary: Reports: No Symptoms Cardiovascular: Reports: No Symptoms Gastrointestinal: Reports: No Symptoms Genitourinary: Reports: No Symptoms Musculoskeletal: Reports: No Symptoms Skin: Reports: No Symptoms Neurological: Reports: No Symptoms Psychiatric: Reports: No Symptoms - Patient Data Vitals - Most Recent: Last Vital Signs Temp 36.4 C 05/21/21 00:38 Pulse 90 05/21/21 00:38 Resp 18 05/21/21 00:38 BP 121/74 05/21/21 09:32 Pulse Ox 99 05/21/21 00:38 Weight - Most Recent: 86.364 kg I&O - Last 24 hours: Intake & Output 05/20/21 05/21/21 05/21/21 22:59 06:59 14:59 Intake Total 390 1575 Output Total 1500 Balance 390 75 Lab Results - Last 24 hrs: Laboratory Results - last 24 hr 05/20/21 05/20/21 05/20/21 Range/Units 09:45 12:15 12:20 WBC (4.23-9.07) K/mm3 RBC (4.63-6.08) M/mm3 Hgb (13.7-17.5) gm/dl Hct (40.1-51.0) % MCV (79.0-92.2) fl MCH (25.7-32.2) pg MCHC (32.2-35.5) g/dl RDW Std Deviation (35.1-43.9) fL Plt Count (163-337) K/mm3 MPV (9.4-12.3) fl Neut % (Auto) (34.0-67.9) % Lymph % (Auto) (21.8-53.1) % Milam % (Auto) (5.3-12.2) % Eos % (Auto) (0.8-7.0) Baso % (Auto) (0.1-1.2) % Neut # (Auto) (1.78-5.38) K/mm3 Lymph # (Auto) (1.32-3.57) K/mm3 Milam # (Auto) (0.30-0.82) K/mm3 Eos # (Auto) (0.04-0.54) K/mm3 Baso # (Auto) (0.01-0.08) K/mm3 Sodium 116 L* (136-145) mEq/L Potassium 3.0 L (3.5-5.1) mEq/L Chloride 79 L (98-107) mEq/L Carbon Dioxide 26 (21-32) mEq/L Anion Gap 14.0 (5-15) BUN 17 (7-18) mg/dL Creatinine 0.9 (0.7-1.3) mg/dL Est Cr Clr Drug Dosing 86.19 mL/min Estimated GFR (MDRD) > 60 (>60) mL/min BUN/Creatinine Ratio 18.9 H (14-18) Glucose 101 H (70-99) mg/dL Calcium 8.9 (8.5-10.1) mg/dL Total Bilirubin (0.2-1.0) mg/dL AST (15-37) U/L ALT (16-63) U/L Alkaline Phosphatase (46-116) U/L Total Protein (6.4-8.2) g/dl Albumin (3.4-5.0) g/dl Globulin gm/dL Albumin/Globulin Ratio (1-2) Urine Osmolality 260 L (400-1100) mosm/kg Ur Random Sodium < 5 L (40-220) mEq/L SARS-CoV-2 RNA (MAXIMINO) Negative (NEGATIVE) 05/21/21 05/21/21 Range/Units 04:55 04:55 WBC 6.76 (4.23-9.07) K/mm3 RBC 3.63 L (4.63-6.08) M/mm3 Hgb 12.4 L (13.7-17.5) gm/dl Hct 34.7 L (40.1-51.0) % MCV 95.6 H (79.0-92.2) fl MCH 34.2 H (25.7-32.2) pg MCHC 35.7 H (32.2-35.5) g/dl RDW Std Deviation 39.1 (35.1-43.9) fL Plt Count 252 (163-337) K/mm3 MPV 7.9 L (9.4-12.3) fl Neut % (Auto) 55.7 (34.0-67.9) % Lymph % (Auto) 21.3 L (21.8-53.1) % Milam % (Auto) 19.8 H (5.3-12.2) % Eos % (Auto) 1.3 (0.8-7.0) Baso % (Auto) 0.6 (0.1-1.2) % Neut # (Auto) 3.76 (1.78-5.38) K/mm3 Lymph # (Auto) 1.44 (1.32-3.57) K/mm3 Milam # (Auto) 1.34 H (0.30-0.82) K/mm3 Eos # (Auto) 0.09 (0.04-0.54) K/mm3 Baso # (Auto) 0.04 (0.01-0.08) K/mm3 Sodium 128 L D (136-145) mEq/L Potassium 3.4 L (3.5-5.1) mEq/L Chloride 90 L (98-107) mEq/L Carbon Dioxide 28 (21-32) mEq/L Anion Gap 13.4 (5-15) BUN 16 (7-18) mg/dL Creatinine 1.0 (0.7-1.3) mg/dL Est Cr Clr Drug Dosing 77.57 mL/min Estimated GFR (MDRD) > 60 (>60) mL/min BUN/Creatinine Ratio 16.0 (14-18) Glucose 102 H (70-99) mg/dL Calcium 8.4 L (8.5-10.1) mg/dL Total Bilirubin 0.6 (0.2-1.0) mg/dL AST 51 H (15-37) U/L ALT 85 H (16-63) U/L Alkaline Phosphatase 59 (46-116) U/L Total Protein 7.4 (6.4-8.2) g/dl Albumin 3.7 (3.4-5.0) g/dl Globulin 3.7 gm/dL Albumin/Globulin Ratio 1.0 (1-2) Urine Osmolality (400-1100) mosm/kg Ur Random Sodium (40-220) mEq/L SARS-CoV-2 RNA (MAXIMINO) (NEGATIVE) Med Orders - Current: Current Medications Acetaminophen (Acetaminophen 325 Mg Tab) 650 mg PO Q4H PRN PRN Reason: Pain (Mild 1-3)/fever Amlodipine Besylate (Amlodipine 10 Mg Tab) 10 mg PO DAILY [facility] Last Admin: 05/21/21 09:31 Dose: 10 mg Documented by: Aspirin (Aspirin 325 Mg Tab.Ec) 325 mg PO DAILY [facility] Last Admin: 05/21/21 09:31 Dose: 325 mg Documented by: Cyclobenzaprine HCl (Cyclobenzaprine 10 Mg Tab) 10 mg PO TID PRN PRN Reason: back pain Last Admin: 05/20/21 21:59 Dose: 10 mg Documented by: Docusate Sodium (Docusate Sodium 100 Mg Cap) 100 mg PO BID PRN PRN Reason: Constipation Enoxaparin Sodium (Enoxaparin 40 Mg/0.4 Ml Syringe) 40 mg SUBCUT DAILY [facility] Last Admin: 05/21/21 09:32 Dose: 40 mg Documented by: Sodium Chloride (Sodium Chloride 3%) 500 mls @ 20 mls/hr IV ASDIRECTED [facility] Last Admin: 05/20/21 11:10 Dose: 20 mls/hr Documented by: Lorazepam (Lorazepam 1 Mg Tab) 1 mg PO BID [facility] Last Admin: 05/21/21 09:31 Dose: 1 mg Documented by: Losartan Potassium (Losartan 100 Mg Tab) 100 mg PO DAILY [facility] Last Admin: 05/21/21 09:32 Dose: 100 mg Documented by: Miscellaneous Information (Remove Patch) 0 ea TRDERM Q24H [facility] Morphine Sulfate (Morphine 2 Mg/Ml Syringe) 2 mg IVPUSH Q2H PRN PRN Reason: Pain (severe 7-10) Stop: 05/21/21 11:41 Last Admin: 05/21/21 00:53 Dose: 2 mg Documented by: Nicotine (Nicotine 21 Mg/24 Hr Patch) 21 mg TRDERM Q24H [facility] Last Admin: 05/20/21 14:36 Dose: 21 mg Documented by: Oxycodone HCl (Oxycodone 5 Mg Tab) 5 mg PO Q4H PRN PRN Reason: Pain (moderate 4-6) Last Admin: 05/21/21 07:07 Dose: 5 mg Documented by: Sodium Chloride (Sodium Chloride 0.9% 10 Ml Syringe) 10 ml FLUSH ONETIME PRN PRN Reason: IV FLUSH Last Admin: 05/20/21 10:15 Dose: 10 ml Documented by: Discontinued Medications Cyclobenzaprine HCl (Cyclobenzaprine 10 Mg Tab) 10 mg PO BID [facility] Diatrizoate Meglum/Diatrizoate Sod (Diatrizoate Meglumine/Diatrizoate Sodium 37% 120 Ml Bottle) 120 ml PO ONETIME ONE Stop: 05/20/21 10:13 Last Admin: 05/20/21 10:14 Dose: 30 ml Documented by: Enoxaparin Sodium (Enoxaparin 40 Mg/0.4 Ml Syringe) 40 mg SUBCUT DAILY [facility] Last Admin: 05/20/21 12:22 Dose: Not Given Documented by: Hydromorphone HCl (Hydromorphone 1 Mg/Ml Syringe) 1 mg IVPUSH ONETIME ONE Stop: 05/20/21 08:46 Last Admin: 05/20/21 08:54 Dose: 1 mg Documented by: Sodium Chloride (Normal Saline) 1,000 mls @ 150 mls/hr IV ASDIRECTED [facility] Last Admin: 05/20/21 08:54 Dose: 150 mls/hr Documented by: Potassium Chloride 10 meq/ (Premix) 100 mls @ 100 mls/hr IV Q1H [facility] Stop: 05/20/21 13:59 Last Admin: 05/20/21 13:33 Dose: 100 mls/hr Documented by: Iopamidol (Iopamidol 612 Mg/Ml 100 Ml Bottle) 100 ml IVPUSH ONETIME ONE Stop: 05/20/21 10:13 Last Admin: 05/20/21 10:14 Dose: 100 ml Documented by: Lorazepam (Lorazepam 1 Mg Tab) 1 mg PO DAILY [facility] Losartan Potassium (Losartan 25 Mg Tab) 25 mg PO DAILY [facility] Ondansetron HCl (Ondansetron 4 Mg/2 Ml Sdv) 4 mg IVPUSH ONETIME ONE Stop: 05/20/21 08:46 Last Admin: 05/20/21 08:54 Dose: 4 mg Documented by: - Exam Quality Assessment: Denies: Supplemental Oxygen, DVT Prophylaxis General: Reports: Alert, Oriented, Cooperative, No Acute Distress HEENT: Reports: Pupils Equal, Pupils Reactive, EOMI, Mucous Membr. Moist/[place] Neck: Reports: Supple, Trachea Midline Lungs: Reports: Clear to Auscultation, Normal Respiratory Effort Cardiovascular: Reports: Regular Rate, Regular Rhythm GI/Abdominal Exam: Normal Bowel Sounds, Soft, Non-Tender, No Distention (Male) Exam: Deferred Rectal (Males) Exam: Deferred Back Exam: Reports: Normal Inspection, Full Range of Motion Extremities: Normal Inspection, No Pedal Edema Skin: Reports: Warm, Dry, Intact Neurological: Reports: No New Focal Deficit Psy/Mental Status: Reports: Alert, Normal Affect, Normal Mood
[2021-05-21 10:30] LABS: HEMOGLOBIN A1C 5.2 %
[2021-05-21 11:23] VITALS: PULSE 86
== END 2021-05-21 11:41 | disposition home or self-care (01) | DRG 641 ==
LOC: JD.ED 08:11 → JD.MS 11:37
PROVIDERS: ADMIT Internal Medicine; ATTEND Internal Medicine
DX: E87.1 Hypo-osmolality and hyponatremia (principal); K76.0 Fatty (change of) liver, not elsewhere classified; F41.9 Anxiety disorder, unspecified; K59.00 Constipation, unspecified; I10 Essential (primary) hypertension; F32.9 Major depressive disorder, single episode, unspecified; E87.6 Hypokalemia; F10.20 Alcohol dependence, uncomplicated; F17.290 Nicotine dependence, other tobacco product, uncomplicated; T50.2X5A Adverse effect of carbonic-anhydrase inhibitors, benzothiadiazides and other diuretics, initial encounter; Z88.6 Allergy status to analgesic agent; Z79.82 Long term (current) use of aspirin; Z79.899 Other long term (current) drug therapy
CPT/HCPCS: 36415; 74177; 74177-26; 76705; 76705-26; 80048; 80053; 82024; 83036; 83690; 83735; 83935; 84300; 85007; 85025; 85027; 96365; 96366; 96375; 99285-25; A9270-GY; J1170; J1650; J2270; J2405; J3480; J7030; J7131; Q9963; Q9967; U0002

== ENCOUNTER 2021-05-23 12:13 | Emergency (ER) | payer OTHER ==
[2021-05-23 12:26] VITALS: BP 145/89; PULSE 110
[2021-05-23] MEDS ORDERED: HYDROmorphone 1 MG/ML Syringe IVPUSH ONE (12:47)
[2021-05-23] MEDS ORDERED: Iopamidol 755 Mg/ML 100 ML Bottle IVPUSH ONE (12:56)
[2021-05-23] MEDS ORDERED: Sodium Chloride 0.9% 100 ML IV SCH (13:00)
[2021-05-23] MEDS: Sodium Chloride 0.9% 10 ML Syringe FLUSH PRN ×2 (13:23→13:59)
--- NOTE | 2021-05-23 13:52 | CT ---
CT chest Technique: Multiple axial sections through the chest were obtained. Study has been performed as a pulmonary angiogram protocol and intravenous contrast was therefore utilized. Comparison: No prior chest imaging is available. Findings: Pulmonary arteries are well opacified. No filling defects are seen to indicate pulmonary embolism. Mild coronary artery calcification is seen. No pericardial thickening is seen. Mild fatty infiltration is noted within the liver. No acute abnormality is seen within the upper abdomen. Lungs show minimal atelectasis within both posterior lung bases. Lungs otherwise are clear. Bone window settings were obtained which show compression deformities within the eighth, ninth and tenth ribs which are most likely old. No definite acute osseous abnormality is appreciated. Impression: 1. No findings of pulmonary embolism. 2. Other findings as noted above which are felt to be chronic. 3. Nothing acute is definitely appreciated. Diagnostic code #2
--- NOTE | 2021-05-23 15:53 | EDM.PDOC ---
ED HPI GENERAL MEDICAL PROBLEM - General Chief Complaint: Chest Pain Stated Complaint: CHEST PAIN/FEVER Time Seen by Provider: 05/23/21 12:28 Source of Information: Reports: Patient History Limitations: Reports: No Limitations - History of Present Illness INITIAL COMMENTS - FREE TEXT/NARRATIVE: The patient presents with lower chest and upper abdominal pain. This has been going on for about a week. A few days ago he was seen here and a full work up was done and the CT looked good. His Na was low at 116 and he was admitted and his Na came up to 128. He normally runs low but not that low. He was taken off of the HCTZ. He says the pain never went away. One morning last week he woke up with it. He does not remember hurting himself in any way. He did not fall and hurt himself. He did not over exert himself the night before. He has no fever, chills, cough, nausea, vomiting or diarrhea. It hurts worse with deep breathing and movement of his torso. Onset: Gradual Duration: Day(s): Location: Reports: Chest, Abdomen Quality: Reports: Sharp Severity: Moderate Improves with: Reports: None Worsens with: Reports: None Associated Symptoms: Reports: Chest Pain. 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: Other (see below) Other Treatments SPEECH AND DRAMA TEACHER: advil Upper Chest Pain Score (Numeric/FACES): 8 - Related Data Allergies Allergy/AdvReac Type Severity Reaction Status Date / Time ibuprofen [From Motrin] Allergy Severe Rash Verified 05/23/21 12:32 Home Meds: Home Meds Losartan [Cozaar] 100 mg PO DAILY 06/16/17 [History] Aspirin 325 mg PO DAILY 05/20/21 [History] Cyclobenzaprine [Flexeril] 10 mg PO TID PRN 05/20/21 [History] LORazepam [Ativan] 1 mg PO BID 05/20/21 [History] Multivitamin 1 tab PO DAILY 05/20/21 [History] amLODIPine [Norvasc] 10 mg PO DAILY 05/20/21 [History] Hydrocodone/Acetaminophen [Hydrocodone-Acetamin 5-325 mg] 1 - 2 each PO Q6H PRN #20 tablet 05/23/21 [Rx] Past Medical History HEENT History: Reports: None Other HEENT History: 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 Cardiovascular History: Reports: Hypertension Respiratory History: Reports: None Gastrointestinal History: Reports: Other (See Below) Other Gastrointestinal History: diverticulitis Genitourinary History: Reports: None Musculoskeletal History: Reports: None Other Musculoskeletal History: currently has fracture x 3 to right ankle, awaiting surgery Neurological History: Reports: Seizure Psychiatric History: Reports: Addiction, Anxiety, Depression Other Psychiatric History: did go for alcohol treatment about 5 years ago Endocrine/Metabolic History: Reports: None Hematologic History: Reports: Anemia Immunologic History: Reports: None Oncologic (Cancer) History: Reports: Basal Cell Carcinoma Dermatologic History: Reports: None - Infectious Disease History Infectious Disease History: Reports: Chicken Pox, Influenza, Measles, Mumps - Past Surgical History HEENT Surgical History: Reports: Other (See Below) Other HEENT Surgeries/Procedures: sinus surgery Cardiovascular Surgical History: Reports: None GI Surgical History: Reports: None Male Surgical History: Reports: Vasectomy Neurological Surgical History: Reports: None Musculoskeletal Surgical History: Reports: Other (See Below) Other Musculoskeletal Surgeries/Procedures:: surgery for right ankle facture in 2017 Social & Family History - Family History Family Medical History: No Pertinent Family History - Tobacco Use Tobacco Use Status *Q: Current Every Day Tobacco User Years of Tobacco use: 40 Packs/Tins Daily: 1 - Caffeine Use Caffeine Use: Reports: Coffee, Soda, Tea - Recreational Drug Use Recreational Drug Type: Reports: Marijuana/Hashish - Living Situation & Occupation Living situation: Reports: , Alone Occupation: Retired ED ROS GENERAL - Review of Systems Review Of Systems: See Below Constitutional: Reports: No Symptoms HEENT: Reports: No Symptoms Respiratory: Reports: No Symptoms Cardiovascular: Reports: Chest Pain Endocrine: Reports: No Symptoms GI/Abdominal: Reports: Abdominal Pain. Denies: Nausea, Vomiting : Reports: No Symptoms ED EXAM, GENERAL - Physical Exam Exam: See Below Exam Limited By: No Limitations General Appearance: Alert, No Apparent Distress Ears: Normal External Exam Nose: Normal Inspection Head: Atraumatic, Normocephalic Neck: Normal Inspection Respiratory/Chest: No Respiratory Distress, Lungs Clear, Normal Breath Sounds Cardiovascular: Regular Rate, Rhythm, No Edema, No Murmur, Other (Mild tenderness to the lower chest around to the back) GI/Abdominal: Soft, Non-Tender, No Organomegaly, No Mass Back Exam: Normal Inspection Extremities: Normal Inspection #1 Interpretation EKG Date: 05/23/21 Time: 13:13 Rhythm: Other (sinus tachycardia) Shan[place]: Normal P-Wave: Present QRS: Normal ST-T: Normal QT: Normal Course - Vital Signs Last Recorded V/S: Last Vital Signs Temp 97.8 F 05/23/21 12:25 Pulse 110 H 05/23/21 12:25 Resp 20 05/23/21 12:25 BP 145/89 H 05/23/21 12:25 Pulse Ox 96 05/23/21 12:25 - Orders/Labs/Meds Orders: Active Orders 24 hr Category Date Time Status Cardiac Monitoring [RC] . DIRECTED Care 05/23/21 12:44 Active Peripheral IV Care [RC] . DIRECTED Care 05/23/21 12:45 Active PRO B-TYPE NATRIUR PEPT,BNPPRO [CHEM] Stat Lab 05/23/21 13:15 Received Sodium Chloride 0.9% [Normal Saline] 100 ml Med 05/23/21 13:00 Active IV ASDIRECTED Sodium Chloride 0.9% [Saline Flush] Med 05/23/21 12:44 Active 10 ml FLUSH ASDIRECTED PRN Peripheral IV Insertion Adult [OM.PC] Stat Oth 05/23/21 12:44 Ordered Medication Orders Sodium Chloride (Normal Saline) 100 mls @ 75 mls/hr IV ASDIRECTED NAHEED Last Admin: 05/23/21 13:59 Dose: 75 mls/hr Documented by: VERONICA Sodium Chloride (Sodium Chloride 0.9% 10 Ml Syringe) 10 ml FLUSH ASDIRECTED PRN PRN Reason: Keep Vein Open Last Admin: 05/23/21 13:59 Dose: 10 ml Documented by: Admin: 05/23/21 13:23 Dose: 10 ml Documented by: LOREN Labs: Laboratory Tests 05/23/21 05/23/21 05/23/21 Range/Units 13:15 13:15 13:15 WBC 7.86 (4.23-9.07) K/mm3 RBC 3.37 L (4.63-6.08) M/mm3 Hgb 11.6 L (13.7-17.5) gm/dl Hct 32.1 L (40.1-51.0) % MCV 95.3 H (79.0-92.2) fl MCH 34.4 H (25.7-32.2) pg MCHC 36.1 H (32.2-35.5) g/dl RDW Std Deviation 38.3 (35.1-43.9) fL Plt Count 299 (163-337) K/mm3 MPV 7.5 L (9.4-12.3) fl Neut % (Auto) 61.1 (34.0-67.9) % Lymph % (Auto) 14.9 L (21.8-53.1) % [place] % (Auto) 21.2 H (5.3-12.2) % Eos % (Auto) 0.3 L (0.8-7.0) Baso % (Auto) 0.8 (0.1-1.2) % Neut # (Auto) 4.81 (1.78-5.38) K/mm3 Lymph # (Auto) 1.17 L (1.32-3.57) K/mm3 [place] # (Auto) 1.67 H (0.30-0.82) K/mm3 Eos # (Auto) 0.02 L (0.04-0.54) K/mm3 Baso # (Auto) 0.06 (0.01-0.08) K/mm3 Manual Slide Review Normal smear PT 10.0 (9.7-12.0) SECONDS INR < 0.93 APTT < 20.0 L (21.7-31.4) SECONDS D-Dimer, Quantitative 1.00 H (0.19-0.50) mg/L Sodium 125 L (136-145) mEq/L Potassium 3.4 L (3.5-5.1) mEq/L Chloride 88 L (98-107) mEq/L Carbon Dioxide 22 (21-32) mEq/L Anion Gap 18.4 H (5-15) BUN 11 (7-18) mg/dL Creatinine 0.9 (0.7-1.3) mg/dL Est Cr Clr Drug Dosing 86.19 mL/min Estimated GFR (MDRD) > 60 (>60) mL/min BUN/Creatinine Ratio 12.2 L (14-18) Glucose 122 H (70-99) mg/dL Lactic Acid (0.4-2.0) mmol/L Calcium 8.7 (8.5-10.1) mg/dL Magnesium 2.1 (1.8-2.4) mg/dL Total Bilirubin 0.4 (0.2-1.0) mg/dL AST 41 H (15-37) U/L ALT 75 H (16-63) U/L Alkaline Phosphatase 73 (46-116) U/L CK-MB (CK-2) 0.9 (0-3.6) ng/ml Troponin I < 0.017 (0.00-0.056) ng/mL C-Reactive Protein 0.6 (<1.0) mg/dL Total Protein 7.2 (6.4-8.2) g/dl Albumin 3.7 (3.4-5.0) g/dl Globulin 3.5 gm/dL Albumin/Globulin Ratio 1.1 (1-2) Lipase 98 (73-393) U/L SARS-CoV-2 RNA (MAXIMINO) (NEGATIVE) 05/23/21 05/23/21 Range/Units 13:15 13:32 WBC (4.23-9.07) K/mm3 RBC (4.63-6.08) M/mm3 Hgb (13.7-17.5) gm/dl Hct (40.1-51.0) % MCV (79.0-92.2) fl MCH (25.7-32.2) pg MCHC (32.2-35.5) g/dl RDW Std Deviation (35.1-43.9) fL Plt Count (163-337) K/mm3 MPV (9.4-12.3) fl Neut % (Auto) (34.0-67.9) % Lymph % (Auto) (21.8-53.1) % [place] % (Auto) (5.3-12.2) % Eos % (Auto) (0.8-7.0) Baso % (Auto) (0.1-1.2) % Neut # (Auto) (1.78-5.38) K/mm3 Lymph # (Auto) (1.32-3.57) K/mm3 [place] # (Auto) (0.30-0.82) K/mm3 Eos # (Auto) (0.04-0.54) K/mm3 Baso # (Auto) (0.01-0.08) K/mm3 Manual Slide Review PT (9.7-12.0) SECONDS INR APTT (21.7-31.4) SECONDS D-Dimer, Quantitative (0.19-0.50) mg/L Sodium (136-145) mEq/L Potassium (3.5-5.1) mEq/L Chloride (98-107) mEq/L Carbon Dioxide (21-32) mEq/L Anion Gap (5-15) BUN (7-18) mg/dL Creatinine (0.7-1.3) mg/dL Est Cr Clr Drug Dosing mL/min Estimated GFR (MDRD) (>60) mL/min BUN/Creatinine Ratio (14-18) Glucose (70-99) mg/dL Lactic Acid 1.9 (0.4-2.0) mmol/L Calcium (8.5-10.1) mg/dL Magnesium (1.8-2.4) mg/dL Total Bilirubin (0.2-1.0) mg/dL AST (15-37) U/L ALT (16-63) U/L Alkaline Phosphatase (46-116) U/L CK-MB (CK-2) (0-3.6) ng/ml Troponin I (0.00-0.056) ng/mL C-Reactive Protein (<1.0) mg/dL Total Protein (6.4-8.2) g/dl Albumin (3.4-5.0) g/dl Globulin gm/dL Albumin/Globulin Ratio (1-2) Lipase (73-393) U/L SARS-CoV-2 RNA (MAXIMINO) Negative (NEGATIVE) Meds: Medications Generic Name Dose Route Start Last Admin Trade Name Freq PRN Reason Stop Dose Admin Sodium Chloride 100 mls @ 75 mls/hr 05/23/21 13:00 05/23/21 13:59 Normal Saline IV 75 mls/hr ASDIRECTED NAHEED Administration Sodium Chloride 10 ml 05/23/21 12:44 05/23/21 13:59 Sodium Chloride 0.9% 10 Ml Syringe FLUSH 10 ml ASDIRECTED PRN Administration Keep Vein Open Discontinued Medications Generic Name Dose Route Start Last Admin Trade Name Freq PRN Reason Stop Dose Admin Hydromorphone HCl 1 mg 05/23/21 12:47 05/23/21 13:33 Hydromorphone 1 Mg/Ml Syringe IVPUSH 05/23/21 12:48 1 mg ONETIME ONE Administration Iopamidol 100 ml 05/23/21 12:56 05/23/21 13:59 Iopamidol 755 Mg/Ml 100 Ml Bottle IVPUSH 05/23/21 12:57 100 ml ONETIME ONE Administration - Re-Assessments/Exams Free Text/Narrative Re-Assessment/Exam: 05/23/21 15:54 I ordered an IV, dilaudid 1mg IV, labs, EKG, CT angio of the chest and labs. His EKG shows a sinus tachycardia with no acute changes. His Hgb is a little low at 11.6. His D-dimer was elevated at 1. his Na was 125. His K was 3.4. His anion gap was elevated at 18.4. His AST is elevated at 41. His ALT was elevated at 75. His troponin is negative. He is COVID [address] angio of the chest shows no PE, chronic finding and nothing acute. 05/23/21 16:02 I will discharge him home with something for pain. Departure - Departure Time of Disposition: 16:05 Disposition: Home, Self-Care 01 Condition: Good Clinical Impression: Atypical chest pain, Hyponatremia Abdominal pain Qualifiers: Abdominal location: upper abdomen, unspecified Qualified Code(s): R10.10 - Upper abdominal pain, unspecified Prescriptions: Hydrocodone/Acetaminophen [Hydrocodone-Acetamin 5-325 mg] 1 - 2 each PO Q6H PRN #20 tablet PRN Reason: Pain Referrals: Min Rutledge MD [Primary Care Provider] - 1 Week Forms: ED Department Discharge Additional Instructions: Drink plenty of fluids. Take tylenol or motrin for pain. You can have more salt on your food. Take tylenol or motrin as needed for pain. If that does not help, try the hydrocodone. Please return if you are worse. Follow up with you doctor within a week. Sepsis Event Note (ED) - Focused Exam Vital Signs: Vital Signs Temp Pulse Resp BP Pulse Ox 05/23/21 12:25 97.8 F 110 H 20 145/89 H 96 - My Orders Last 24 Hours: My Active Orders 05/23/21 12:44 Cardiac Monitoring [RC] . DIRECTED Sodium Chloride 0.9% [Saline Flush] 10 ml FLUSH ASDIRECTED PRN Peripheral IV Insertion Adult [OM.PC] Stat 05/23/21 12:45 Peripheral IV Care [RC] . DIRECTED 05/23/21 13:00 Sodium Chloride 0.9% [Normal Saline] 100 ml IV ASDIRECTED 05/23/21 13:15 PRO B-TYPE NATRIUR PEPT,BNPPRO [CHEM] Stat - Assessment/Plan Last 24 Hours: My Active Orders 05/23/21 12:44 Cardiac Monitoring [RC] . DIRECTED Sodium Chloride 0.9% [Saline Flush] 10 ml FLUSH ASDIRECTED PRN Peripheral IV Insertion Adult [OM.PC] Stat 05/23/21 12:45 Peripheral IV Care [RC] . DIRECTED 05/23/21 13:00 Sodium Chloride 0.9% [Normal Saline] 100 ml IV ASDIRECTED 05/23/21 13:15 PRO B-TYPE NATRIUR PEPT,BNPPRO [CHEM] Stat
== END 2021-05-23 16:23 | disposition home or self-care (01) ==
LOC: JD.ED 12:13 → SUPCPDRO 12:13 → JD.ED 16:23
DX: R07.89 Other chest pain (principal); R10.10 Upper abdominal pain, unspecified; E87.1 Hypo-osmolality and hyponatremia; I10 Essential (primary) hypertension; Z79.82 Long term (current) use of aspirin; Z88.8 Allergy status to other drugs, medicaments and biological substances; Z79.899 Other long term (current) drug therapy; Z72.0 Tobacco use; Z20.822 Contact with and (suspected) exposure to COVID-19
CPT/HCPCS: 36415; 71275; 80053; 82553; 83605; 83690; 83735; 83880; 84484; 85025; 85379; 85610; 85730; 86140; 87635; 93005; 96374; 99285; J1170; Q9967; U0002

== ENCOUNTER 2021-06-01 09:54 | Emergency (ER) | payer OTHER ==
[2021-06-01] MEDS ORDERED: Sodium Chloride 0.9% 10 ML Syringe FLUSH PRN (10:36)
[2021-06-01] MEDS ORDERED: Sodium Chloride 0.9% 1,000 ML IV STA ×2 (10:42→11:06)
[2021-06-01] MEDS ORDERED: Ondansetron 4 MG/2 ML SDV IVPUSH ONE (10:42)
[2021-06-01] MEDS ORDERED: HYDROmorphone 0.5 MG/0.5 ML Syringe IVPUSH ONE (10:42)
[2021-06-01] MEDS ORDERED: LORazepam 2 MG/ML SDV IVPUSH ONE (10:45)
--- NOTE | 2021-06-01 10:53 | EDM.PDOC ---
ED HPI GENERAL MEDICAL PROBLEM - General Chief Complaint: Abdominal Pain Stated Complaint: ABDOMINAL/BACK PAIN Time Seen by Provider: 06/01/21 10:12 Source of Information: Reports: Patient, RN Notes Reviewed History Limitations: Reports: No Limitations - History of Present Illness INITIAL COMMENTS - FREE TEXT/NARRATIVE: Patient is a 60-year-old male presenting to the emergency department with complaints of ongoing back and abdominal pain. Patient reports has been going on for a number of weeks. Pain wraps from his mid back around through his entire abdomen. He has had no nausea, vomiting, or diarrhea. Pain is worse with movement and deep breathing. Reports he does have a history of constipation, however he has been taking a stool softener and this has improved. He now has regular bowel movements. He was seen in this emergency department on the and 23 May for the same complaint. On the , he was found to be hyponatremic and hypokalemic and admitted for treatment . CT scan and ultrasound were completed that time showed no acute abnormalities. Patient reports the pain has never resolved. Does not feel it is necessarily worse, however reports that has not improved either. He has not followed up in the clinic thus far, however he is scheduled to see Dr. Rutledge on Sunday. He was prescribed hydrocodone with Tylenol on May 23 and states that this does help with his pain; however, he is out of this. Patient also reports chronic alcoholism. He drinks 8 beers and a few shots of whiskey daily. He has not had a drink since yesterday. Reports he does feel anxious and shaky at this time. He does have Ativan prescribed to him at home, however he has not taken it today. Denies any history of seizure with alcohol withdrawal. He reports that he does plan to stop drinking, however, he is not ready to stop yet. Denies the need for help to stop drinking at this time. Middle Abdominal Pain Score (Numeric/FACES): 6 - Related Data Allergies Allergy/AdvReac Type Severity Reaction Status Date / Time ibuprofen [From Motrin] Allergy Severe Rash Verified 06/01/21 10:20 Home Meds: Home Meds Losartan [Cozaar] 100 mg PO DAILY 06/16/17 [History] Aspirin 325 mg PO DAILY 05/20/21 [History] Cyclobenzaprine [Flexeril] 10 mg PO TID PRN 05/20/21 [History] LORazepam [Ativan] 1 mg PO BID 05/20/21 [History] Multivitamin 1 tab PO DAILY 05/20/21 [History] amLODIPine [Norvasc] 10 mg PO DAILY 05/20/21 [History] Hydrocodone/Acetaminophen [Hydrocodone-Acetamin 5-325 mg] 1 - 2 each PO Q6H PRN #20 tablet 05/23/21 [Rx] predniSONE [Prednisone] 20 mg PO ASDIRECTED #15 tablet 06/01/21 [Rx] Past Medical History HEENT History: Reports: None Other HEENT History: 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 Cardiovascular History: Reports: Hypertension Respiratory History: Reports: None Gastrointestinal History: Reports: Other (See Below) Other Gastrointestinal History: diverticulitis Genitourinary History: Reports: None Musculoskeletal History: Reports: None Other Musculoskeletal History: currently has fracture x 3 to right ankle, awaiting surgery Neurological History: Reports: Seizure Psychiatric History: Reports: Addiction, Anxiety, Depression Other Psychiatric History: did go for alcohol treatment about 5 years ago Endocrine/Metabolic History: Reports: None Hematologic History: Reports: Anemia Immunologic History: Reports: None Oncologic (Cancer) History: Reports: Basal Cell Carcinoma Dermatologic History: Reports: None - Infectious Disease History Infectious Disease History: Reports: Chicken Pox, Influenza, Measles, Mumps - Past Surgical History HEENT Surgical History: Reports: Other (See Below) Other HEENT Surgeries/Procedures: sinus surgery Cardiovascular Surgical History: Reports: None GI Surgical History: Reports: None Male Surgical History: Reports: Vasectomy Neurological Surgical History: Reports: None Musculoskeletal Surgical History: Reports: Other (See Below) Other Musculoskeletal Surgeries/Procedures:: surgery for right ankle facture in 2017 Social & Family History - Family History Family Medical History: No Pertinent Family History - Tobacco Use Tobacco Use Status *Q: Never Tobacco User - Caffeine Use Caffeine Use: Reports: Coffee, Soda, Tea - Alcohol Use Days Per Week of Alcohol Use: 7 Number of Drinks Per Day: 10 Total Drinks Per Week: 70 - Recreational Drug Use Recreational Drug Use: No - Living Situation & Occupation Living situation: Reports: , Alone Occupation: Retired ED ROS GENERAL - Review of Systems Review Of Systems: See Below Constitutional: Reports: No Symptoms. Denies: Fever, Chills HEENT: Reports: No Symptoms Respiratory: Reports: No Symptoms Cardiovascular: Reports: No Symptoms Endocrine: Reports: No Symptoms GI/Abdominal: Reports: Abdominal Pain. Denies: Diarrhea, Nausea, Vomiting : Reports: No Symptoms Musculoskeletal: Reports: Back Pain (middle) Skin: Reports: No Symptoms Neurological: Reports: Tremors. Denies: Dizziness, Headache Psychiatric: Reports: Anxiety Hematologic/Lymphatic: Reports: No Symptoms Immunologic: Reports: No Symptoms ED EXAM, GI/ABD - Physical Exam Exam: See Below Exam Limited By: No Limitations General Appearance: Alert, WD/WN, No Apparent Distress Respiratory/Chest: No Respiratory Distress, Lungs Clear, Normal Breath Sounds, No Accessory Muscle Use, Chest Non-Tender Cardiovascular: Normal Peripheral Pulses, Regular Rate, Rhythm, No Edema, No Gallop, No JVD, No Murmur, No Rub GI/Abdominal Exam: Normal Bowel Sounds, Soft, Non-Tender, No Organomegaly, No Distention, No Abnormal Bruit, No Mass, Pelvis Stable Back Exam: Normal Inspection, Full Range of Motion, Vertebral Tenderness (Approximate T5-T12 and bilateral paraspinous muscles.) Neurological: Alert, Oriented, CN II-XII Intact, Normal Cognition, Normal Gait, Normal Reflexes, No Motor/Sensory Deficits, Other (Mild tremor) Psychiatric: Normal Affect, Normal Mood Skin Exam: Warm, Dry, Intact, Normal Color, No Rash Course - Vital Signs Last Recorded V/S: Last Vital Signs Temp 98.6 F 06/01/21 12:52 Pulse 110 H 06/01/21 12:52 Resp 16 06/01/21 12:52 BP 139/98 H 06/01/21 12:52 Pulse Ox 98 06/01/21 12:52 - Orders/Labs/Meds Orders: Active Orders 24 hr Category Date Time Status Peripheral IV Insertion Adult [OM.PC] Stat Oth 06/01/21 10:36 Ordered Labs: Laboratory Tests 06/01/21 06/01/21 06/01/21 Range/Units 10:23 10:38 10:38 WBC 5.01 (4.23-9.07) K/mm3 RBC 4.21 L (4.63-6.08) M/mm3 Hgb 14.2 D (13.7-17.5) gm/dl Hct 41.6 (40.1-51.0) % MCV 98.8 H D (79.0-92.2) fl MCH 33.7 H (25.7-32.2) pg MCHC 34.1 (32.2-35.5) g/dl RDW Std Deviation 43.2 (35.1-43.9) fL Plt Count 463 H D (163-337) K/mm3 MPV 7.2 L (9.4-12.3) fl Neut % (Auto) 55.5 (34.0-67.9) % Lymph % (Auto) 25.5 (21.8-53.1) % Calvert % (Auto) 12.2 (5.3-12.2) % Eos % (Auto) 3.2 (0.8-7.0) Baso % (Auto) 3.0 H (0.1-1.2) % Neut # (Auto) 2.78 (1.78-5.38) K/mm3 Lymph # (Auto) 1.28 L (1.32-3.57) K/mm3 Calvert # (Auto) 0.61 (0.30-0.82) K/mm3 Eos # (Auto) 0.16 (0.04-0.54) K/mm3 Baso # (Auto) 0.15 H (0.01-0.08) K/mm3 Sodium 135 L D (136-145) mEq/L Potassium 3.8 (3.5-5.1) mEq/L Chloride 97 L (98-107) mEq/L Carbon Dioxide 24 (21-32) mEq/L Anion Gap 17.8 H (5-15) BUN 13 (7-18) mg/dL Creatinine 1.1 (0.7-1.3) mg/dL Est Cr Clr Drug Dosing 70.52 mL/min Estimated GFR (MDRD) > 60 (>60) mL/min BUN/Creatinine Ratio 11.8 L (14-18) Glucose 117 H (70-99) mg/dL Calcium 8.9 (8.5-10.1) mg/dL Total Bilirubin 0.3 (0.2-1.0) mg/dL AST 65 H (15-37) U/L ALT 75 H (16-63) U/L Alkaline Phosphatase 223 H (46-116) U/L C-Reactive Protein <0.2 (<1.0) mg/dL Total Protein 8.7 H (6.4-8.2) g/dl Albumin 4.5 (3.4-5.0) g/dl Globulin 4.2 gm/dL Albumin/Globulin Ratio 1.1 (1-2) Lipase 112 (73-393) U/L Urine Color Yellow (Yellow) Urine Appearance Clear (Clear) Urine pH 6.5 (5.0-8.0) Ur Specific Spencer 1.015 (1.005-1.030) Urine Protein Negative (Negative) Urine Glucose (UA) Negative (Negative) Urine Ketones Negative (Negative) Urine Occult Blood Negative (Negative) Urine Nitrite Negative (Negative) Urine Bilirubin Negative (Negative) Urine Urobilinogen 0.2 (0.2-1.0) Ur Leukocyte Esterase Negative (Negative) U Hyaline Cast (Auto) 0-5 (0-5) /lpf Urine RBC 0-5 (0-5) /hpf Urine WBC 0-5 (0-5) /hpf Ur Squamous Epith Cells 0-5 (0-5) /hpf Urine Bacteria Few (FEW) /hpf Urine Mucus Few (FEW) /hpf Meds: Medications Discontinued Medications Generic Name Dose Route Start Last Admin Trade Name Freq PRN Reason Stop Dose Admin Hydromorphone HCl 0.5 mg 06/01/21 10:42 06/01/21 11:00 Hydromorphone 0.5 Mg/0.5 Ml Syringe IVPUSH 06/01/21 10:43 0.5 mg ONETIME ONE Administration Sodium Chloride 1,000 mls @ 150 mls/hr 06/01/21 10:42 06/01/21 11:20 Normal Saline IV 06/01/21 17:21 999 mls/hr NOW STA Infusion Sodium Chloride 1,000 mls @ 999 mls/hr 06/01/21 11:06 Normal Saline IV 06/01/21 12:06 NOW STA Lorazepam 0.5 mg 06/01/21 10:45 06/01/21 10:59 Lorazepam 2 Mg/Ml Sdv IVPUSH 06/01/21 10:46 0.5 mg ONETIME ONE Administration Ondansetron HCl 4 mg 06/01/21 10:42 06/01/21 10:59 Ondansetron 4 Mg/2 Ml Sdv IVPUSH 06/01/21 10:43 4 mg ONETIME ONE Administration Sodium Chloride 10 ml 06/01/21 10:36 06/01/21 10:39 Sodium Chloride 0.9% 10 Ml Syringe FLUSH 10 ml ASDIRECTED PRN Administration Keep Vein Open - Re-Assessments/Exams Free Text/Narrative Re-Assessment/Exam: 06/01/21 12:06 Patient is feeling much better after the medications given. Abdomen x-ray shows a normal bowel gas pattern with no excessive amounts of stool. Hematology is overall unremarkable with exception of elevated liver enzymes and anion gap. IV fluids were turned up to a bolus rate. Results discussed with patient as well as his brother, Guillermo, in [place]. Review of patient's CT scan show that he has a old compression fracture at T10 which does correlate with his area of discomfort. Reports the pain is mainly in his back and then wraps around to his abdomen. He only has pain when moving. When lying flat he is comfortable. Given his history of alcoholism and that the patient reports that when he goes home he will resume drinking, and hesitant to put him on narcotic pain relief. We will try a short course of prednisone for the pain. Recommend routine Tylenol. He should keep his appointment with his primary care provider, Dr. Ambrose, on Sunday. Review of the CT completed in April also showed possibility of a bladder mass. I will send referral to urology for evaluation of this. I visit with the patient further about resources available for him to stop drinking. I will provide him with information on how to contact [facility] that when he is ready to stop he has this. Patient is in agreement with this plan. Discharge instructions as documented. Departure - Departure Time of Disposition: 12:11 Disposition: Home, Self-Care 01 Condition: Good Clinical Impression: Alcohol abuse Abdominal pain Qualifiers: Abdominal location: upper abdomen, unspecified Qualified Code(s): R10.10 - Upper abdominal pain, unspecified Back pain Qualifiers: Back pain location: thoracic back pain Chronicity: acute Back pain laterality: bilateral Qualified Code(s): M54.6 - Pain in thoracic spine - Discharge Information *PRESCRIPTION DRUG MONITORING PROGRAM REVIEWED*: No *COPY OF PRESCRIPTION DRUG MONITORING REPORT IN PATIENT ROSAURA: No Prescriptions: predniSONE [Prednisone] 20 mg PO ASDIRECTED #15 tablet Instructions: Alcohol Use Disorder, Acute Back Pain, Adult Referrals: Min Rutledge MD [Primary Care Provider] - Giorgio Stockton MD [Ordering Only Provider] - Forms: ED Department Discharge Additional Instructions: You were seen in the emergency department today for ongoing mid back pain that wraps around through your abdomen. Blood work, urinalysis, and abdomen x-ray were completed. Results were found to be overall normal with the exception of elevated liver enzymes likely related to your drinking. You are also slightly dehydrated. You received IV fluids, pain medications, nausea medication, and Ativan in the ER. This did improve your symptoms. Review of CT scan completed 2 weeks ago show that you have a chronic compression fracture at T10 which does correlate with your area of discomfort. It is possible this is the cause of your pain. Unfortunately given your chronic alcoholism, narcotic pain relief is not ideal. We are going to start you on prednisone which is an anti-inflammatory. Recommend routine Tylenol and heat packs to your back as well. CT scan completed 2 weeks ago did show some concern of a possible bladder mass as well. Recommend that you follow-up with urology to address this. Referral has been sent to Dr. Stockton at [facility] in [place]. Call to set up follow-up appointment. Keep your appointment as scheduled with your primary care provider on Sunday. Services are available to help you stop drinking. When you decide that you are ready to stop, recommend that you contact [facility] [employer]. The number to schedule with them is [phone]. If you experience any new or worsening symptoms of concern, please do not hesitate to return to the emergency department for reevaluation. Sepsis Event Note (ED) - Evaluation Sepsis Screening Result: No Definite Risk - Focused Exam Vital Signs: Vital Signs Temp Pulse Resp BP Pulse Ox 06/01/21 12:52 98.6 F 110 H 16 139/98 H 98 06/01/21 10:16 98.7 F 120 H 16 140/94 H 100 - My Orders Last 24 Hours: My Active Orders 06/01/21 10:36 Peripheral IV Insertion Adult [OM.PC] Stat - Assessment/Plan Last 24 Hours: My Active Orders 06/01/21 10:36 Peripheral IV Insertion Adult [OM.PC] Stat
--- NOTE | 2021-06-01 12:22 | CR ---
Abdomen: Supine view of the abdomen was obtained. Comparison: No prior abdominal x-ray is available, previous CT abdomen and pelvis study of 05/20/21 is available. Bowel gas pattern appears within normal limits. Scoliosis and mild degenerative change are seen within the spine. Phlebolith is seen within the pelvis. Impression: 1. Incidental findings. 2. Nothing acute is seen on supine abdominal x-ray. Diagnostic code #2
[2021-06-01 12:54] VITALS: BP 139/98; PULSE 110
== END 2021-06-01 12:56 | disposition home or self-care (01) ==
LOC: JD.ED 09:54
DX: R10.10 Upper abdominal pain, unspecified (principal); M54.6 Pain in thoracic spine; F10.10 Alcohol abuse, uncomplicated; I10 Essential (primary) hypertension; Z79.82 Long term (current) use of aspirin; Z79.899 Other long term (current) drug therapy; Z88.8 Allergy status to other drugs, medicaments and biological substances
CPT/HCPCS: 36415; 74018; 80053; 81001; 83690; 85025; 86140; 96374; 96375; 99284; J1170; J2060; J2405; J7030

== ENCOUNTER 2021-06-19 16:12 | Emergency (ER) | payer OTHER ==
[2021-06-19 16:34] VITALS: BP 161/106; PULSE 102
--- NOTE | 2021-06-19 16:38 | EDM.PDOC ---
ED HPI GENERAL MEDICAL PROBLEM - General Chief Complaint: Back Pain or Injury Stated Complaint: back pain Time Seen by Provider: 06/19/21 16:42 Source of Information: Reports: Patient History Limitations: Reports: No Limitations - History of Present Illness INITIAL COMMENTS - FREE TEXT/NARRATIVE: 60-year-old male presents to the ED complaining of diffuse severe low back pain. He states has been gradually getting worse over a period of 10 to 12 weeks. He has no history of trauma or known injury. Apparently CT has revealed a significant compression fracture of T12 vertebra in the past documented in previous provider notes. Pain radiates along his right flank area and into his upper abdomen. He apparently has had a MRI of his back done within the last 2 weeks but it was done through the [facility] [employer] system and is not available to us for interpretation. He comes to the emergency room today primarily seeking pain management as he states he cannot stand the pain any longer. No position is comfortable and standing for more than 3 to 4 minutes is almost impossible due to the exacerbation of the pain. He denies any fever chills or diaphoresis. States he sleeps very poorly due to waking up frequently with low back pain when he moves or rolls over. He states he drinks alcohol usually in fairly high amounts in an effort to sleep at night. Onset: Unknown/Unsure (Pain is been present in his lower back for about 3 months or more.) Duration: Week(s):, Chronic, Getting Worse Location: Reports: Back (Persistent low back pain around the lower thoracic vertebra) Quality: Reports: Ache, Throbbing Severity: Severe Improves with: Reports: None (In the 10 no position is comfortable. Lying flat with his knees flexed reduces the pain somewhat.) Worsens with: Reports: Other (Pain is worse with standing and sitting. He cannot stand for more than [address] before he has to sit down due to increased back pain) Context: Reports: Other (Spontaneous occurrence over the last 3 months.). Denies: Activity, Exercise, Lifting, Sick Contact, Trauma Associated Symptoms: Reports: Cough. Denies: Confusion, Chest Pain, Diaphoresis, Fever/Chills, Headaches, Loss of Appetite, Malaise, Nausea/Vomiting, Rash, Seizure, Shortness of Breath, Syncope, Weakness Treatments TRIAGE ASSISTANT: Reports: Acetaminophen Back Pain Score (Numeric/FACES): 7 - Related Data Allergies Allergy/AdvReac Type Severity Reaction Status Date / Time ibuprofen [From Motrin] Allergy Severe Rash Verified 06/19/21 16:34 Home Meds: Home Meds oxyCODONE HCl/Acetaminophen [Percocet 5-325 mg Tablet] 1 - 2 each PO Q4H PRN #30 tablet 06/19/21 [Rx] Past Medical History HEENT History: Reports: None Other HEENT History: 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 Cardiovascular History: Reports: Hypertension Respiratory History: Reports: None Gastrointestinal History: Reports: Other (See Below) Other Gastrointestinal History: diverticulitis Genitourinary History: Reports: None Musculoskeletal History: Reports: None Other Musculoskeletal History: currently has fracture x 3 to right ankle, awaiting surgery Neurological History: Reports: Seizure Psychiatric History: Reports: Addiction, Anxiety, Depression Other Psychiatric History: did go for alcohol treatment about 5 years ago Endocrine/Metabolic History: Reports: None Hematologic History: Reports: Anemia Immunologic History: Reports: None Oncologic (Cancer) History: Reports: Basal Cell Carcinoma Dermatologic History: Reports: None - Infectious Disease History Infectious Disease History: Reports: Chicken Pox, Influenza, Measles, Mumps - Past Surgical History HEENT Surgical History: Reports: Other (See Below) Other HEENT Surgeries/Procedures: sinus surgery Cardiovascular Surgical History: Reports: None GI Surgical History: Reports: None Male Surgical History: Reports: Vasectomy Neurological Surgical History: Reports: None Musculoskeletal Surgical History: Reports: Other (See Below) Other Musculoskeletal Surgeries/Procedures:: surgery for right ankle facture in 2017 Social & Family History - Family History Family Medical History: No Pertinent Family History - Tobacco Use Tobacco Use Status *Q: Current Every Day Tobacco User Years of Tobacco use: 45 Packs/Tins Daily: 1 - Caffeine Use Caffeine Use: Reports: None - Alcohol Use Days Per Week of Alcohol Use: 7 Number of Drinks Per Day: 7 Total Drinks Per Week: 49 - Recreational Drug Use Recreational Drug Use: No - Living Situation & Occupation Living situation: Reports: , Alone Occupation: Retired ED ROS GENERAL - Review of Systems Review Of Systems: See Below Constitutional: Reports: Malaise, Weakness, Fatigue, Decreased Appetite. Denies: Fever, Chills HEENT: Reports: No Symptoms Respiratory: Reports: Shortness of Breath, Cough, Sputum (Smoker. Occasionally yadiel colored sputum). Denies: Wheezing, Pleuritic Chest Pain Cardiovascular: Reports: Blood Pressure Problem, Dyspnea on Exertion. Denies: Chest Pain, Claudication, Edema (On occasion), Lightheadedness, Orthopnea, Syncope Endocrine: Reports: Fatigue GI/Abdominal: Reports: Other (History of GERD. 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 No known injuries.), Other (He has no radiculopathy into his buttocks or legs. Pain radiates more along the right flank area and into his upper abdomen on the right side.) Skin: Reports: No Symptoms Neurological: Reports: No Symptoms Psychiatric: Reports: No Symptoms Hematologic/Lymphatic: Reports: No Symptoms Immunologic: Reports: No Symptoms ED EXAM,LOWER BACK PAIN/INJURY - Physical Exam Exam: See Below Exam Limited By: No Limitations General Appearance: Alert, WD/WN, Moderate Distress, Other (Appears to be in a good deal of discomfort. Sitting up and standing make the pain much worse. Temperature was 36.6 with a heart rate of 102 and sinus respiratory of 20 O2 sats 100% on room air. BP elevated at 161/106) Eye Exam: Bilateral Eye: Normal Inspection, PERRL Throat/Mouth: Normal Inspection, Normal Lips, Normal Oropharynx Head: Atraumatic, Normocephalic Neck: Normal Inspection, Supple, Non-Tender, Full Range of Motion. No: Lymphadenopathy (R) Respiratory/Chest: No Respiratory Distress, Lungs Clear, Normal Breath Sounds, No Accessory Muscle Use Cardiovascular: Normal Peripheral Pulses, Regular Rate, Rhythm, No Edema, No Gallop, No Murmur, No Rub GI/Abdominal: Normal Bowel Sounds, Soft, Non-Tender, No Organomegaly Back Exam: CVA Tenderness (R), Decreased Range of Motion, Muscle Spasm (Patient has significant paraspinal muscle spasm from thoracic 6 to lumbar 2 on the right side. None on the left side. Pain is not necessarily worse in the midline. Pain is localized to around T10-T11 transverse processes and rib heads), Paraspinal Tenderness (Right side.). No: Full Range of Motion Extremities: Normal Inspection, Normal Range of Motion, Non-Tender, No Pedal Edema Neurological: Alert, Normal Mood/Affect, Normal Dorsiflexion, CN II-XII Intact Skin Exam: Warm, Dry, Intact, Normal Color, No Rash Course - Vital Signs Last Recorded V/S: Last Vital Signs Temp 36.6 C 06/19/21 16:33 Pulse 102 H 06/19/21 16:33 Resp 20 06/19/21 16:33 BP 161/106 H 06/19/21 16:33 Pulse Ox 100 06/19/21 16:33 - Orders/Labs/Meds Meds: Medications Discontinued Medications Generic Name Dose Route Start Last Admin Trade Name Brandon PRN Reason Stop Dose Admin Hydromorphone HCl 1 mg 06/19/21 16:55 Hydromorphone 1 Mg/Ml Syringe IM 06/19/21 16:56 ONETIME ONE Promethazine HCl 25 mg 06/19/21 16:55 Promethazine 25 Mg/Ml Sdv IM 06/19/21 16:56 ONETIME ONE - Radiology Interpretation Free Text/Narrative:: 60-year-old male presents to the ED for evaluation of chronic low back pain. Essentially is here for pain management. Reports that he has had no injuries but has developed severe chronic low back pain which is unrelenting and gradually getting worse over the last 3 months. Old notes in our chart suggest that he has a old compression fracture of thoracic 10 vertebra. His presentation is concerning for possible underlying multiple myeloma. Patient apparently had MRI of his lumbar spine done 2 weeks ago but has not heard about the results. He states essentially he is unable to do anything i.e. standing for more than 5 minutes makes him sit sitting too long makes his back pain worse. Lying flat he will often wakes up during the night due to pain in his back from rolling over. He states he drinks alcohol often to excess so that he can try and get some sleep at night. He is allergic to Motrin and other NSAIDs. Takes Tylenol with minimal relief. Examination reveals significant paraspinal muscle spasm on the right side from thoracic 6 to lumbar 2. Point of maximal tenderness however is adjacent to thoracic 10 and 11 vertebra over the rib heads in this area. No midline tenderness. States he has had multiple investigations he needs to follow-up with his primary care provider for the results of his MRI. I suggested that he might be a patient that is amenable to steroid injections in this area by pain management. Today he will be given Dilaudid 1 mg IM with Phenergan 25 mg IM for acute pain relief.Script written for percocet tabs 5/325mg --1 to 2 tablets every 4-6 hours necessary for pain relief primarily to be used at bedtime to allow him to sleep. He should not use them when he is operating a motor vehicle. Departure - Departure Time of Disposition: 16:56 Disposition: Home, Self-Care 01 Condition: Fair Clinical Impression: Compression fracture of body of thoracic vertebra Low back pain Qualifiers: Chronicity: chronic Back pain laterality: right Sciatica presence: without sciatica Qualified Code(s): M54.50 - Low back pain, unspecified - Discharge Information *PRESCRIPTION DRUG MONITORING PROGRAM REVIEWED*: Not Applicable *COPY OF PRESCRIPTION DRUG MONITORING REPORT IN PATIENT ROSAURA: Not Applicable Prescriptions: oxyCODONE HCl/Acetaminophen [Percocet 5-325 mg Tablet] 1 - 2 each PO Q4H PRN #30 tablet PRN Reason: pain relief. Instructions: Thoracic Spine Fracture, Chronic Back Pain Referrals: Min Rutledge MD [Primary Care Provider] - Forms: ED Department Discharge Additional Instructions: Evaluation in the emergency room today in regards to persistent severe low back pain originating it appears from thoracic 10 or 11 vertebra. I did review the chart and you do have a old appearing compression fracture of thoracic 10 vertebra which is likely the cause of current pain syndrome. I found significant right-sided paraspinal muscle spasm on examination. You will need to continue follow-up with Dr. Colindres at the [facility] and tentatively he may be able to arrange facet joint steroid injection with through the pain management clinic at the [facility] in [place]. You were treated today with an intramuscular injection of Dilaudid mixed with Phenergan IM to provide pain relief over the next 6 hours or so. Script written for Percocet tabs 5/325 mg tablets to be taken ideally at bedtime so that you can sleep better with pain relief. They should not be mixed with alcohol or taken if you are operating a motor vehicle. Sepsis Event Note (ED) - Focused Exam Vital Signs: Vital Signs Temp Pulse Resp BP Pulse Ox 06/19/21 16:33 36.6 C 102 H 20 161/106 H 100
[2021-06-19] MEDS ORDERED: HYDROmorphone 1 MG/ML Syringe IM ONE (16:55)
[2021-06-19] MEDS ORDERED: Promethazine 25 MG/ML SDV IM ONE (16:55)
== END 2021-06-19 17:31 | disposition home or self-care (01) ==
LOC: JD.ED 16:12
DX: S22.070A Wedge compression fracture of T9-T10 vertebra, initial encounter for closed fracture (principal); I10 Essential (primary) hypertension; Z88.8 Allergy status to other drugs, medicaments and biological substances; Z72.0 Tobacco use; X58.XXXA Exposure to other specified factors, initial encounter
CPT/HCPCS: 96372; 99283; J1170; J2550

== ENCOUNTER 2023-02-22 08:34 | Emergency (ER) | payer BC, OTHER ==
[2023-02-22] MEDS ORDERED: Sodium Chloride 0.9% 1,000 ML IV SCH (08:45)
[2023-02-22] MEDS: Sodium Chloride 0.9% 10 ML Syringe FLUSH PRN ×2 (08:56→12:53)
[2023-02-22 09:05] LABS: BASOPHILS ABSOLUTE AUTO 0.15 K/mm3 (0.01-0.08); BASOPHILS PERCENT AUTO 1.8 % (0.1-1.2); EOSINOPHILS ABSOLUTE AUTO 0.06 K/mm3 (0.04-0.54); EOSINOPHILS PERCENT AUTO 0.7 (0.8-7.0); HEMATOCRIT 31.2 % (40.1-51.0); IMMATURE GRAN PERCENT AUTO 1.2 % (<=1.0); LYMPHOCYTES ABSOLUTE AUTO 1.66 K/mm3 (1.32-3.57); LYMPHOCYTES PERCENT AUTO 19.5 % (21.8-53.1); MEAN CORPUSCULAR HEMOGLOBIN 36.4 pg (25.7-32.2); MEAN CORPUSCULAR HGB CONC 35.3 g/dl (32.2-35.5); MEAN CORPUSCULAR VOLUME 103.3 fl (79.0-92.2); MEAN PLATELET VOLUME 9.8 fl (9.4-12.3); MONOCYTES ABSOLUTE AUTO 0.82 K/mm3 (0.30-0.82); MONOCYTES PERCENT AUTO 9.6 % (5.3-12.2); NEUTROPHILS ABSOLUTE AUTO 5.73 K/mm3 (1.78-5.38); NEUTROPHILS PERCENT AUTO 67.2 % (34.0-67.9); PLATELET COUNT,PLT 159 K/mm3 (163-337); RED BLOOD CELL COUNT 3.02 M/mm3 (4.63-6.08); WHITE BLOOD CELL COUNT,WBC 8.52 K/mm3 (4.23-9.07)
[2023-02-22 09:21] LABS: INR 1.12; PROTHROMBIN TIME 11.9 SECONDS (9.7-12.0)
[2023-02-22 09:34] LABS: A/G RATIO 0.6 (1-2); ALBUMIN 2.7 g/dl (3.4-5.0); ANION GAP 26.6 (5-15); BILIRUBIN TOTAL 8.9 mg/dL (0.2-1.0); BUN/CREATININE RATIO 6.4 (14-18); C-REACTIVE PROTEIN 2.2 mg/dL (<1.0); CALCIUM 8.8 mg/dL (8.5-10.1); CREATININE 1.1 mg/dL (0.7-1.3); EST CRCL DRUG DOSING (CG) 68.74 mL/min; ETHANOL BLOOD MEDICAL 0.28 gm% (0.00); MAGNESIUM 2.1 mg/dL (1.8-2.4); PROTEIN TOTAL,TP 7.4 g/dl (6.4-8.2); TSH 4.128 uIU/mL (0.358-3.74)
[2023-02-22 09:37] LABS: POTASSIUM,K 3.6 mEq/L (3.5-5.1)
[2023-02-22 09:40] LABS: PTT,PARTIAL THROMBOPLSTIN TIME 29.4 SECONDS (21.7-31.4)
[2023-02-22 09:40] LABS: BILIRUBIN,URINE 3+ (Negative); GLUCOSE,URINE NEGATIVE (Negative); KETONES,URINE TRACE (Negative); LEUKOCYTE ESTERASE,URINE NEGATIVE (Negative); NITRITE,URINE NEGATIVE (Negative); OCCULT BLOOD,URINE NEGATIVE (Negative); PROTEIN,URINE 1+ (Negative); UROBILINOGEN,URINE >=8.0 (0.2-1.0)
[2023-02-22 09:46] LABS: D-DIMER QUANTITATIVE 3.34 mg/L (0.19-0.50)
[2023-02-22 09:49] LABS: BARBITURATE SCREEN,URINE NEGATIVE (CUTOFF=200); BENZODIAZEPINES SCREEN,URINE NEGATIVE (CUTOFF=150); BUPRENORPHINE SCREEN,URINE NEGATIVE (CUTOFF=10); METHADONE SCREEN, URINE NEGATIVE (CUT0FF=200); METHAMPHETAMINES SCREEN, URINE NEGATIVE (CUTOFF=500); OXYCODONE SCREEN,URINE NEGATIVE (CUT0FF=100); PROPOXYPHENE SCREEN,URINE NEGATIVE (CUTOFF=300); THC SCREEN,URINE 20 NG/ML NEGATIVE (CUTOFF=50)
[2023-02-22 09:50] LABS: AMPHETAMINES SCREEN, URINE NEGATIVE (CUTOFF=500)
[2023-02-22 10:00] LABS: APPEARANCE,URINE SLT CLOUDY (Clear); COLOR,URINE DARK YELLOW (Yellow)
[2023-02-22 10:03] LABS: BACTERIA,URINE MODERATE /hpf (FEW); MUCUS,URINE FEW /hpf (FEW); RBC,URINE 0-5 /hpf (0-5); SQUAMOUS EPITHELIAL CELLS,UR 0-5 /hpf (0-5); WBC,URINE 0-5 /hpf (0-5)
[2023-02-22] MEDS ORDERED: LORazepam 2 MG/ML SDV IVPUSH ONE ×2 (10:43→13:36)
[2023-02-22] MEDS ORDERED: Thiamine 200 MG/2 ML MDV IVPUSH ONE (10:43)
[2023-02-22] MEDS ORDERED: Iopamidol 612 MG/ML 100 ML Bottle IVPUSH ONE (12:39)
[2023-02-22] MEDS ORDERED: Sodium Chloride 0.9% 100 ML IV SCH (12:45)
[2023-02-22 19:01] VITALS: BP 114/69; PULSE 88
== END 2023-02-22 16:15 ==
LOC: JD.ED 08:34
DX: F10.129 Alcohol abuse with intoxication, unspecified (principal); K72.90 Hepatic failure, unspecified without coma; G93.40 Encephalopathy, unspecified; Y90.1 Blood alcohol level of 20-39 mg/100 ml
CPT/HCPCS: 36415; 70450; 71045; 72125; 74177; 80053; 80306; 80307; 81001; 82140; 82550; 83735; 83880; 84443; 84484; 85025; 85379; 85610; 85652; 85730; 86140; 87040; 93005; 96374; 96375; 96376; 99285; J2060; J3411; J3490; J7030; Q9967; 93010

== ENCOUNTER 2024-12-31 09:44 | Day surgery (SDC) | payer MEDICARE, OTHER ==
[~2024-12-31 09:44] MED LIST: Sodium Chloride 0.9% 10 ML Syringe FLUSH PRN; Sodium Chloride 0.9% 10 ML Syringe FLUSH SCH
[2024-12-31] MEDS ORDERED: dexmedeTOMIDine HCl 200 MCG/2 ML SDV ONE (10:32)
[2024-12-31] MEDS ORDERED: Sodium Chloride 0.9% 100 ML ONE (10:32)
[2024-12-31] MEDS ORDERED: propofoL 500 MG/50 ML 50 ML ONE (10:52)
[2024-12-31] MEDS ORDERED: Lidocaine 2% 5 ML SDV ONE (10:52)
[2024-12-31] MEDS ORDERED: Glycopyrrolate 0.2 MG/ML 2 ML SDV ONE (10:52)
[2024-12-31] MEDS: Lactated Ringers 1,000 ML IV SCH (11:05)
[2024-12-31] MEDS ORDERED: Simethicone Drops 40 MG/0.6 ML 30 ML Bottle ONE (11:16)
[2024-12-31 12:11] VITALS: BP 117/68; PULSE 74
== END 2024-12-31 12:25 | disposition home or self-care (01) ==
LOC: JD.SDS 09:44
PROVIDERS: ATTEND Surgery
DX: Z12.11 Encounter for screening for malignant neoplasm of colon (principal); D12.2 Benign neoplasm of ascending colon; K20.90 Esophagitis, unspecified without bleeding; K57.30 Diverticulosis of large intestine without perforation or abscess without bleeding; K70.31 Alcoholic cirrhosis of liver with ascites; K64.9 Unspecified hemorrhoids; I10 Essential (primary) hypertension; F41.1 Generalized anxiety disorder; F32.9 Major depressive disorder, single episode, unspecified; F17.200 Nicotine dependence, unspecified, uncomplicated; Z79.899 Other long term (current) drug therapy; Z88.6 Allergy status to analgesic agent
CPT/HCPCS: 43239; 45380; A9270; J1596; J2003; J2704; J7120; 00813; 88305